=== PATIENT | female | born 1965 | race Caucasian/White ===

== ENCOUNTER 2016-02-21 17:12 | Emergency (ER) | payer SELFPAY ==
[~2016-02-21] VITALS: Ht 157.5 cm; Wt 49.9 kg
[~2016-02-21 17:12] MED LIST: CITALOPRAM PO; DULO30CA PO; GABA250S2 PO; HYDR2TAB27 PO; METH-171 PO; METHADONE PO; MORPHINE PO; [UNRECOGNIZED DRUG - CODE]; [UNRECOGNIZED DRUG - CODE]
[2016-02-21 17:43] LABS: Basophils # (auto) 0 uL; Basophils % (auto) 0.5 % (0.0-2.0); Eosinophils # (auto) 0 uL; Eosinophils % (auto) 1.1 % (0.0-7.0); Hematocrit 43.4 % (36.0-46.0); Hemoglobin 14.2 g/dL (12.2-16.2); Lymphocytes # (auto) 1.4 uL; Lymphocytes % (auto) 32.1 % (10.0-50.0); Mean Corpuscular Hemoglobin 29.5 pg (28.0-32.0); Mean Corpuscular Hgb Conc. 32.7 g/dL (32.0-36.0); Mean Corpuscular Volume 90.3 fL (80.0-100.0); Mean Platelet Volume 8.1 fL (7.4-10.4); Monocytes # (auto) 0.3 uL; Monocytes % (auto) 7.5 % (0.0-12.0); Neutrophils # (auto) 2.6 uL; Neutrophils % (auto) 58.8 % (37.0-80.0); Platelet Count (auto) 286 10^3/uL (140-450); Red Cell Distribution Width 13.7 % (11.6-16.0); White Blood Cell 4.4 10^3/uL (4.4-10.8)
[2016-02-21 18:12] LABS: Albumin 3.6 g/dL (3.4-5.0); BUN/Creatinine Ratio 28.4; Bilirubin, Total 0.2 mg/dL (0.2-1.0); Calcium 8.5 mg/dL (8.5-10.1); Magnesium 2.4 mg/dL (1.6-2.6); Potassium 4.4 mmol/L (3.5-5.1); Total Protein 7.1 g/dL (6.4-8.2)
[2016-02-21] MEDS ORDERED: ONDANSETRON HCL 4 MG/2 ML VIAL IV ONE (20:00)
[2016-02-21] MEDS ORDERED: SODIUM CHLORIDE 0.9% 1,000 ML IV ONE (20:00)
[2016-02-21] MEDS ORDERED: cefTRIAXone 1GM/50ML D5W 50 ML IV ONE (20:00)
[2016-02-21] MEDS ORDERED: HYDROmorphone HCL 2 MG/ML VL IV ONE (20:00)
[2016-02-21] MEDS ORDERED: methylPREDNISolone SOD SUCC 125 MG/2 ML VL IV ONE (20:15)
[2016-02-21] MEDS ORDERED: ALBUTEROL SULF 2.5 MG/0.5ML(0.5%) NEB SOLN NEB ONE (20:15)
[2016-02-21] MEDS ORDERED: IPRATROPIUM BROM 0.5 MG/2.5ML INH SOL NEB ONE (20:15)
[2016-02-21] MEDS ORDERED: SOD CHL 0.45% 1,000 ML IV ONE (20:45)
[2016-02-21] MEDS ORDERED: HYDROmorphone HCL 2 MG TAB PO ONE (21:30)
[2016-02-21 23:24] VITALS: BP 122/68
== END 2016-02-21 23:19 | disposition home or self-care (01) ==
LOC: EDBD 17:12 → ER 17:18
DX: J18.9 Pneumonia, unspecified organism (principal); R00.1 Bradycardia, unspecified; F17.210 Nicotine dependence, cigarettes, uncomplicated; M41.9 Scoliosis, unspecified; E86.0 Dehydration; R07.9 Chest pain, unspecified; Z98.890 Other specified postprocedural states
CPT/HCPCS: 36415; 36600; 71010; 80053; 82805; 83735; 84484; 85025; 87040; 87400; 93005; 94640; 96365; 96375; 96376; 99285; J0696; J1170; J2405; J2930

== ENCOUNTER 2017-03-16 07:43 | Emergency (ER) | payer OTHER ==
[~2017-03-16] VITALS: Ht 30.5 cm; Wt 54.4 kg
[~2017-03-16 07:43] MED LIST changes: -HYDR2TAB27 PO; +HYDR2TAB58 PO; -METH-171 PO; +METH-532 PO
[2017-03-16 09:04] LABS: Basophils # (auto) 0 uL; Basophils % (auto) 0.4 % (0.0-2.0); Eosinophils # (auto) 0 uL; Eosinophils % (auto) 1.2 % (0.0-7.0); Hematocrit 40.9 % (36.0-46.0); Hemoglobin 13.8 g/dL (12.2-16.2); Lymphocytes # (auto) 0.9 uL; Lymphocytes % (auto) 26.7 % (10.0-50.0); Mean Corpuscular Hemoglobin 30.7 pg (28.0-32.0); Mean Corpuscular Hgb Conc. 33.7 g/dL (32.0-36.0); Mean Corpuscular Volume 91.1 fL (80.0-100.0); Monocytes # (auto) 0.4 uL; Monocytes % (auto) 11.6 % (0.0-12.0); Neutrophils # (auto) 2.1 uL; Neutrophils % (auto) 60.1 % (37.0-80.0); Nucleated Red Blood Cells % 0.1 %; Platelet Count (auto) 181 10^3/uL (140-450); Red Cell Distribution Width 14.8 % (11.8-14.3); White Blood Cell 3.5 10^3/uL (4.4-10.8)
[2017-03-16] MEDS ORDERED: SODIUM CHLORIDE 0.9% 1,000 ML IV ONE ×2 (09:21→09:48)
[2017-03-16 09:26] LABS: Albumin 3.8 g/dL (3.4-5.0); Bilirubin, Total 0.4 mg/dL (0.2-1.0); Calcium 8.7 mg/dL (8.5-10.1); Total Protein 7.2 g/dL (6.4-8.2)
[2017-03-16] MEDS ORDERED: KETOROLAC TROMETH 30 MG/ML 1ML VIAL IV ONE ×2 (09:30→10:00)
[2017-03-16] MEDS ORDERED: PROMETHAZINE HCL 25 MG/ML 1ML IV ONE ×2 (09:30→10:00)
[2017-03-16] MEDS ORDERED: MORPHINE SULFATE 10 MG/ML INJ 1ML SDV IV ONE (10:00)
[2017-03-16] MEDS ORDERED: MORPHINE SULF INJ 2 MG/ML SYRINGE 1ML ONE ×2 (10:43→10:56)
[2017-03-16] MEDS ORDERED: MORPHINE SULF INJ 2 MG/ML SYRINGE 1ML IV ONE (11:00)
[2017-03-16 12:08] LABS: Urine Bacteria FEW /hpf (None Seen); Urine Blood TRACE /uL (Negative); Urine Mucus FEW (None Seen); Urine Specific Gravity 1.006 (1.001-1.035); Urine WBC <1 /hpf (0 - 5)
[2017-03-16 13:09] VITALS: BP 92/50
[2017-03-16] MEDS ORDERED: PROMETHAZINE HCL 25 MG/ML 1ML IM ONE (14:15)
[2017-03-16] MEDS ORDERED: fentaNYL 50MCG/HR 50 MCG/HR PAT TD SCH (14:15)
[2017-03-16] MEDS ORDERED: MEPERIDINE HCL (50 MG/ML) 1 ML VIAL IM ONE (14:15)
== END 2017-03-16 16:12 | disposition home or self-care (01) ==
LOC: EDBD 07:43 → ER 07:43
DX: M54.16 Radiculopathy, lumbar region (principal); G89.29 Other chronic pain; M41.9 Scoliosis, unspecified; F11.23 Opioid dependence with withdrawal; F17.210 Nicotine dependence, cigarettes, uncomplicated; F15.10 Other stimulant abuse, uncomplicated; F12.10 Cannabis abuse, uncomplicated; Z88.1 Allergy status to other antibiotic agents; Z79.899 Other long term (current) drug therapy
CPT/HCPCS: 36415; 80053; 81001; 83735; 85025; 93005; 96361; 96372; 96374; 96375; 99285; J1885; J2175; J2270; J2550; J7030

== ENCOUNTER 2018-10-12 06:47 | Emergency (ER) | payer OTHER ==
[~2018-10-12] VITALS: Ht 165.1 cm; Wt 56.2 kg
[2018-10-12] MEDS ORDERED: HYDROmorphone HCL 2 MG/ML VL IV ONE (07:15)
[2018-10-12] MEDS ORDERED: PROMETHAZINE HCL 25 MG/ML 1ML IV ONE (07:15)
[2018-10-12 07:33] LABS: Basophils # (auto) 0 uL; Basophils % (auto) 0.3 % (0.0-2.0); Eosinophils # (auto) 0.1 uL; Eosinophils % (auto) 1.1 % (0.0-7.0); Hematocrit 41.8 % (36.0-46.0); Hemoglobin 14.3 g/dL (12.2-16.2); Lymphocytes # (auto) 1.6 uL; Lymphocytes % (auto) 23.4 % (10.0-50.0); Mean Corpuscular Hemoglobin 30.7 pg (28.0-32.0); Mean Corpuscular Hgb Conc. 34.1 g/dL (32.0-36.0); Monocytes # (auto) 0.5 uL; Monocytes % (auto) 7.7 % (0.0-12.0); Neutrophils # (auto) 4.7 uL; Neutrophils % (auto) 67.5 % (37.0-80.0); Platelet Count (auto) 196 10^3/uL (140-450); Red Blood Cells 4.65 10^6/uL (4.0-5.20); Red Cell Distribution Width 13.7 % (11.8-14.3)
[2018-10-12] MEDS ORDERED: ASPirin 81 mg TAB PO ONE (07:45)
[2018-10-12 07:47] LABS: Albumin 4.3 g/dL (3.4-5.0); Anion Gap 9 (5-15); Calcium 9.2 mg/dL (8.5-10.1); Carbon Dioxide 24 mmol/L (21-32); Chloride 108 mmol/L (98-107); Glucose 82 mg/dL (74-106); Magnesium 2.3 mg/dL (1.6-2.6); Potassium 3.7 mmol/L (3.5-5.1); Sodium 141 mmol/L (136-145)
[2018-10-12 07:54] LABS: Alanine Aminotransferase 17 U/L (13-56); Alkaline Phosphatase 95 U/L (45-117); Aspartate Aminotransferase 15 U/L (15-37); Bilirubin, Total 0.3 mg/dL (0.2-1.0); Blood Urea Nitrogen 24 mg/dL (7-18); GFR African American 85 mL/min; GFR Non-African American 70 mL/min; Total Protein 7.9 g/dL (6.4-8.2)
[2018-10-12] MEDS ORDERED: KETOROLAC TROMETH 30 MG/ML 1ML VIAL IV ONE (12:15)
[2018-10-12 12:47] VITALS: BP 160/100
== END 2018-10-12 13:00 | disposition home or self-care (01) ==
LOC: ER 06:47
DX: R07.89 Other chest pain (principal); F17.210 Nicotine dependence, cigarettes, uncomplicated; Z88.1 Allergy status to other antibiotic agents; Z79.899 Other long term (current) drug therapy
CPT/HCPCS: 36415; 71045; 80053; 83735; 83880; 84484; 85025; 93005; 96374; 96375; 99284; J1170; J1885; J2550; J7030

== ENCOUNTER 2018-10-28 14:51 | Emergency (ER) | payer OTHER ==
[~2018-10-28] VITALS: Ht 170.2 cm; Wt 59.0 kg
[2018-10-28 15:28] LABS: Basophils # (auto) 0 uL; Basophils % (auto) 0.5 % (0.0-2.0); Eosinophils # (auto) 0 uL; Eosinophils % (auto) 0.9 % (0.0-7.0); Hematocrit 45.3 % (36.0-46.0); Hemoglobin 15.1 g/dL (12.2-16.2); Lymphocytes # (auto) 1.2 uL; Lymphocytes % (auto) 20.6 % (10.0-50.0); Mean Corpuscular Hemoglobin 30.2 pg (28.0-32.0); Mean Corpuscular Hgb Conc. 33.3 g/dL (32.0-36.0); Mean Corpuscular Volume 90.8 fL (80.0-100.0); Monocytes # (auto) 0.4 uL; Monocytes % (auto) 7.7 % (0.0-12.0); Neutrophils # (auto) 3.9 uL; Neutrophils % (auto) 70.3 % (37.0-80.0); Nucleated Red Blood Cells % 0.1 %; Platelet Count (auto) 227 10^3/uL (140-450); Red Blood Cells 4.99 10^6/uL (4.0-5.20); Red Cell Distribution Width 14.5 % (11.8-14.3); White Blood Cell 5.6 10^3/uL (4.4-10.8)
[2018-10-28] MEDS ORDERED: ASPirin 81 mg TAB PO ONE (15:30)
[2018-10-28 15:42] LABS: Alanine Aminotransferase 22 U/L (13-56); Anion Gap 11 (5-15); Blood Urea Nitrogen 24 mg/dL (7-18); Carbon Dioxide 24 mmol/L (21-32); Chloride 108 mmol/L (98-107); Glucose 96 mg/dL (74-106); Magnesium 2.1 mg/dL (1.6-2.6); Potassium 4.3 mmol/L (3.5-5.1); Sodium 143 mmol/L (136-145)
[2018-10-28 15:47] LABS: Alkaline Phosphatase 93 U/L (45-117); Aspartate Aminotransferase 17 U/L (15-37); BUN/Creatinine Ratio 18.8; Bilirubin, Total 0.7 mg/dL (0.2-1.0); GFR African American 56 mL/min; GFR Non-African American 46 mL/min; Total Protein 7.3 g/dL (6.4-8.2)
[2018-10-28 16:00] LABS: INR 0.97 (0.9-1.15); Partial Thromboplastin Time 25.9 sec (23.64-32.05)
[2018-10-28 20:36] VITALS: BP 119/85
[2018-10-28] MEDS ORDERED: ALPRAZolam 0.25 MG TAB PO ONE (21:15)
== END 2018-10-28 21:29 | disposition home or self-care (01) ==
LOC: EDBD 14:51 → ER 14:57
DX: I47.1 Supraventricular tachycardia (principal); I12.9 Hypertensive chronic kidney disease with stage 1 through stage 4 chronic kidney disease, or unspecified chronic kidney disease; N18.3 Chronic kidney disease, stage 3 (moderate); F17.210 Nicotine dependence, cigarettes, uncomplicated
CPT/HCPCS: 36415; 71045; 80053; 83735; 83880; 84443; 84484; 85025; 85610; 85730; 93005; 94761

== ENCOUNTER 2021-08-10 13:34 | Emergency (ER) | payer OTHER ==
[~2021-08-10] VITALS: Ht 165.1 cm; Wt 50.8 kg
[2021-08-10] MEDS ORDERED: KETOROLAC TROMETH 60MG/2ML VIAL IM ONE (15:00)
[2021-08-10 15:18] VITALS: BP 150/99
== END 2021-08-10 14:53 | disposition home or self-care (01) ==
LOC: ER 13:34
DX: M79.10 Myalgia, unspecified site (principal); S86.911A Strain of unspecified muscle(s) and tendon(s) at lower leg level, right leg, initial encounter; S80.02XA Contusion of left knee, initial encounter; I10 Essential (primary) hypertension; I25.10 Atherosclerotic heart disease of native coronary artery without angina pectoris; F17.210 Nicotine dependence, cigarettes, uncomplicated; Z79.899 Other long term (current) drug therapy; Z88.1 Allergy status to other antibiotic agents; X58.XXXA Exposure to other specified factors, initial encounter; Y93.89 Activity, other specified; Y92.89 Other specified places as the place of occurrence of the external cause; Y99.8 Other external cause status
CPT/HCPCS: 73562; 73590; 96372; 99284; J1885

== ENCOUNTER 2021-12-17 08:49 | Emergency (ER) | payer OTHER ==
[~2021-12-17] VITALS: Ht 165.1 cm; Wt 51.0 kg
[2021-12-17] MEDS ORDERED: TRIA0.02 TOP (11:07)
[2021-12-17] MEDS ORDERED: ACYC-166 PO (11:07)
[2021-12-17 11:09] VITALS: BP 159/114
[2021-12-17] MEDS ORDERED: ACETAMINOPHEN 500 MG TAB PO ONE (11:15)
== END 2021-12-17 11:25 | disposition home or self-care (01) ==
LOC: ER 08:49
DX: B02.9 Zoster without complications (principal); I10 Essential (primary) hypertension; I25.10 Atherosclerotic heart disease of native coronary artery without angina pectoris; F17.210 Nicotine dependence, cigarettes, uncomplicated; Z79.899 Other long term (current) drug therapy; Z88.1 Allergy status to other antibiotic agents

== ENCOUNTER 2021-12-19 10:55 | Emergency (ER) | payer OTHER ==
[~2021-12-19] VITALS: Ht 165.1 cm; Wt 54.0 kg
[~2021-12-19 10:55] MED LIST changes: +ACYC-166 PO; +TRIA0.02 TOP
[2021-12-19] MEDS ORDERED: KETOROLAC TROMETH 60MG/2ML VIAL IM ONE (12:15)
[2021-12-19 12:19] VITALS: BP 122/96
[2021-12-19] MEDS ORDERED: TRAM-297 PO (12:30)
== END 2021-12-19 12:38 | disposition home or self-care (01) ==
LOC: ER 10:55
DX: B02.9 Zoster without complications (principal); G89.4 Chronic pain syndrome; I10 Essential (primary) hypertension; I25.10 Atherosclerotic heart disease of native coronary artery without angina pectoris; F17.210 Nicotine dependence, cigarettes, uncomplicated; Z79.899 Other long term (current) drug therapy; Z88.1 Allergy status to other antibiotic agents
CPT/HCPCS: 96372; 99283; J1885

== ENCOUNTER 2022-01-01 13:39 | Emergency (ER) | payer OTHER ==
[~2022-01-01] VITALS: Ht 165.1 cm; Wt 51.0 kg
[~2022-01-01 13:39] MED LIST changes: +TRAM-297 PO
[2022-01-01] MEDS ORDERED: TRIA0.02 TOP (15:34)
[2022-01-01 15:36] VITALS: BP 180/104
[2022-01-01] MEDS ORDERED: KETOROLAC TROMETH 60MG/2ML VIAL IM ONE (15:45)
== END 2022-01-01 15:53 | disposition home or self-care (01) ==
LOC: ER 13:39
DX: B02.29 Other postherpetic nervous system involvement (principal); I10 Essential (primary) hypertension; I25.10 Atherosclerotic heart disease of native coronary artery without angina pectoris; F17.210 Nicotine dependence, cigarettes, uncomplicated; Z79.899 Other long term (current) drug therapy; Z88.1 Allergy status to other antibiotic agents; Z88.5 Allergy status to narcotic agent
CPT/HCPCS: 96372; 99283; J1885

== ENCOUNTER 2022-05-15 13:23 | Emergency (ER) | payer OTHER ==
[~2022-05-15] VITALS: Ht 165.1 cm; Wt 56.6 kg
[2022-05-15 13:58] LABS: Basophils # (auto) 0 10 ^3/uL (0-0.2); Basophils % (auto) 0.8 % (0.0-2.0); Eosinophils # (auto) 0.1 10 ^3/uL (0-0.8); Eosinophils % (auto) 1.4 % (0.0-7.0); Hematocrit 46.3 % (36.0-46.0); Hemoglobin 15.7 g/dL (12.2-16.2); Lymphocytes # (auto) 0.8 10 ^3/uL (0.4-5.4); Lymphocytes % (auto) 17.2 % (10.0-50.0); Mean Corpuscular Volume 88.3 fL (80.0-100.0); Monocytes # (auto) 0.3 10 ^3/uL (0-1.3); Neutrophils # (auto) 3.5 10 ^3/uL (1.6-8.6); Neutrophils % (auto) 74.6 % (37.0-80.0); Nucleated Red Blood Cells % 0.7 %; Red Blood Cells 5.24 10^6/uL (4.0-5.20); Red Cell Distribution Width 13.3 % (11.8-14.3); White Blood Cell 4.7 10^3/uL (4.4-10.8)
[2022-05-15] MEDS ORDERED: MORPHINE SULFATE 4 MG/ML SYR/VIAL IV ONE (14:00)
[2022-05-15] MEDS ORDERED: PROCHLORPERAZINE EDISYLATE 5 MG/ML 2ML VIAL IV ONE (14:00)
[2022-05-15 14:27] LABS: INR 0.97 (0.9-1.15); Partial Thromboplastin Time 26.5 sec (24.6-33.4)
[2022-05-15 15:13] LABS: Albumin 3.9 g/dL (3.4-5.0); BUN/Creatinine Ratio 19.7 (10.0-20.0); Calcium 9.4 mg/dL (8.5-10.1); Magnesium 2.3 mg/dL (1.6-2.6); Potassium 5.1 mmol/L (3.5-5.1)
[2022-05-15 15:15] LABS: Bilirubin, Total 0.4 mg/dL (0.2-1.0); Total Protein 7.2 g/dL (6.4-8.2)
[2022-05-15] MEDS ORDERED: ALBUTEROL SULF 2.5 MG/0.5ML(0.5%) NEB SOLN NEB ONE (15:45)
[2022-05-15] MEDS ORDERED: IPRATROPIUM BROM 0.5 MG/2.5ML INH SOL NEB ONE (15:45)
[2022-05-15] MEDS ORDERED: SODIUM CHLORIDE 0.9% 1,000 ML IV ONE (16:00)
[2022-05-15] MEDS ORDERED: methylPREDNISolone SOD SUCC 125 MG/2 ML VL IV ONE (18:00)
[2022-05-15] MEDS ORDERED: ALBUAER3 IN (18:41)
[2022-05-15] MEDS ORDERED: MELO1TAB56 PO (18:41)
[2022-05-15] MEDS ORDERED: PRED20TA2 PO (18:41)
[2022-05-15 18:51] VITALS: BP 132/86
== END 2022-05-15 18:48 | disposition home or self-care (01) ==
LOC: ER 13:23
DX: J44.1 Chronic obstructive pulmonary disease with (acute) exacerbation (principal); M94.0 Chondrocostal junction syndrome [Tietze]; Z79.899 Other long term (current) drug therapy; Z88.1 Allergy status to other antibiotic agents; Z88.5 Allergy status to narcotic agent
CPT/HCPCS: 36415; 71045; 80053; 83735; 83880; 84484; 85025; 85610; 85730; 93005; 94640; 96361; 96374; 96375; 99285; J0780; J2270; J2930; J7030; J7644

== ENCOUNTER 2023-06-24 11:40 | Emergency (ER) | payer OTHER ==
[~2023-06-24] VITALS: Ht 165.1 cm; Wt 57.5 kg
[~2023-06-24 11:40] MED LIST changes: -ACYC-166 PO; +ACYC1TAB3 PO; +ALBUAER3 IN; -GABA250S2 PO; +GABA250S7 PO; +MELO15TA29 PO; +PRED20TA2 PO
[2023-06-24 13:06] VITALS: BP 150/104; PULSE 95; RESP 16; TEMP 97.5; O2SAT 99
[2023-06-24] MEDS ORDERED: AMOX500T86 PO (13:31)
== END 2023-06-24 13:33 | disposition home or self-care (01) ==
LOC: ER 11:40
DX: S51.832A Puncture wound without foreign body of left forearm, initial encounter (principal); I10 Essential (primary) hypertension; I25.10 Atherosclerotic heart disease of native coronary artery without angina pectoris; F41.9 Anxiety disorder, unspecified; F17.210 Nicotine dependence, cigarettes, uncomplicated; Z88.8 Allergy status to other drugs, medicaments and biological substances; Z79.899 Other long term (current) drug therapy; W54.0XXA Bitten by dog, initial encounter; Y93.89 Activity, other specified; Y92.89 Other specified places as the place of occurrence of the external cause; Y99.8 Other external cause status
CPT/HCPCS: 73090

== ENCOUNTER 2023-08-18 14:07 | Inpatient (IN) | payer OTHER ==
[~2023-08-18] VITALS: Ht 167.6 cm; Wt 54.1 kg
[~2023-08-18 14:07] MED LIST changes: +AMOX500T86 PO
[2023-08-18 14:56] LABS: Basophils # (auto) 0 10 ^3/uL (0-0.2); Basophils % (auto) 0.5 % (0.0-2.0); Eosinophils # (auto) 0.1 10 ^3/uL (0-0.8); Eosinophils % (auto) 1.6 % (0.0-7.0); Hematocrit 43.5 % (36.0-46.0); Hemoglobin 14.7 g/dL (12.2-16.2); Lymphocytes # (auto) 1.3 10 ^3/uL (0.4-5.4); Lymphocytes % (auto) 27.8 % (10.0-50.0); Mean Corpuscular Hemoglobin 30.5 pg (28.0-32.0); Mean Corpuscular Hgb Conc. 33.9 g/dL (32.0-36.0); Mean Corpuscular Volume 90.1 fL (80.0-100.0); Monocytes # (auto) 0.5 10 ^3/uL (0-1.3); Monocytes % (auto) 10.5 % (0.0-12.0); Neutrophils # (auto) 2.7 10 ^3/uL (1.6-8.6); Neutrophils % (auto) 59.6 % (37.0-80.0); Nucleated Red Blood Cells % 0.1 %; Red Blood Cells 4.83 10^6/uL (4.0-5.20); Red Cell Distribution Width 14.6 % (11.8-14.3); White Blood Cell 4.5 10^3/uL (4.4-10.8)
[2023-08-18 15:12] LABS: Alanine Aminotransferase 18 U/L (7-40); Albumin 4.2 g/dL (3.2-4.8); Alkaline Phosphatase 108 U/L (46-116); Anion Gap 4 (5-15); Aspartate Aminotransferase 12 U/L (13-40); BUN/Creatinine Ratio 18.8 (10.0-20.0); Bilirubin, Total 0.5 mg/dL (0.2-1.0); Blood Urea Nitrogen 18 mg/dL (9-23); Calcium 9.6 mg/dL (8.7-10.4); Carbon Dioxide 28 mmol/L (20-30); Chloride 108 mmol/L (98-107); Glucose 99 mg/dL (74-106); Lipase 34 U/L (12-53); Potassium 4.6 mmol/L (3.5-5.1); Sodium 140 mmol/L (136-145); Total Protein 6.5 g/dL (5.7-8.2)
[2023-08-18] MEDS: ALPRAZolam 0.5 MG TAB PO ONE (15:15)
[2023-08-18] MEDS: KETOROLAC TROMETH 30 MG/ML 1ML VIAL IV ONE (16:30)
[2023-08-18 17:12] LABS: Urine Bacteria None Seen /hpf (None Seen)
[2023-08-18 17:19] LABS: Urine Blood TRACE /uL (Negative); Urine Clarity Clear (Clear); Urine Color Light-Yellow (Yellow); Urine Mucus FEW (None Seen); Urine Protein, UAD Negative (Negative); Urine Specific Gravity 1.016 (1.001-1.035); Urine Urobilinogen Normal (Negative); Urine WBC 7 /hpf (0 - 5)
[2023-08-18 17:29] LABS: Amphetamine Screen, Urine Neg (NEGATIVE); Barbiturate Scree,Urine Neg (NEGATIVE); Benzodiazephine Screen, Urine Neg (NEGATIVE); Cocaine Screen, Urine Neg (NEGATIVE); Opiate Scree,Urine Neg (NEGATIVE)
[2023-08-18 17:30] LABS: Cannabinoid Screen, Urine Neg (NEGATIVE); Phencyclidine Screen, Urine Neg (NEGATIVE)
[2023-08-18] MEDS ORDERED: cloNIDine 0.2 mg/24hr 7DAY PATCH TD ONE (18:30)
[2023-08-18] MEDS: cloNIDine HCL 0.1 MG TAB PO ONE (18:30)
[2023-08-18] MEDS ORDERED: cefTRIAXone SOD 1,000 MG VL IM ONE (18:30)
[2023-08-18] MEDS: cefTRIAXone 1GM/50ML D5W 50 ML IV ONE (18:45)
[2023-08-18 18:53] VITALS: PULSE 85; RESP 18; O2SAT 98
[2023-08-18] MEDS: ACETAMINOPHEN 325 MG TAB PO ONE (19:43)
[2023-08-18] MEDS ORDERED: MELATONIN 5 MG TAB PO PRN (19:45)
[2023-08-18] MEDS ORDERED: ONDANSETRON HCL 4 MG/2 ML VIAL IV PRN (19:45)
[2023-08-18] MEDS ORDERED: NITROGLYCERIN 0.4 MG SL TAB SL PRN (19:45)
[2023-08-18] MEDS ORDERED: MORPHINE SULFATE INJ 2 MG/ml SYRG IV PRN (19:45)
[2023-08-18] MEDS ORDERED: hydrALAZINE HCL 20 MG/ML VL IV PRN (19:45)
[2023-08-18] MEDS: ASPirin 81 mg TAB PO SCH (21:26)
[2023-08-18 22:21] VITALS: BP 136/98; PULSE 71; RESP 20; TEMP 97.4; O2SAT 99
[2023-08-18 22:26] VITALS: BP 136/98; PULSE 75; RESP 20; TEMP 97.4; O2SAT 99
[2023-08-18] MEDS: ATORVASTATIN 20 MG TAB PO SCH (22:59)
[2023-08-18] MEDS ORDERED: LOSA-533 PO (23:41)
[2023-08-19 01:37] VITALS: BP 113/81; PULSE 60; RESP 17; TEMP 97.5; O2SAT 97
[2023-08-19] MEDS: HYDROcodone-ACET 5/325MG TAB PO PRN (06:02)
[2023-08-19 06:31] VITALS: BP 145/87; PULSE 78; RESP 17; TEMP 97.5; O2SAT 97
[2023-08-19 07:01] LABS: Triglycerides 84 mg/dL (< 150)
[2023-08-19 07:02] LABS: LDL Cholesterol 70 mg/dL (< 100)
[2023-08-19 07:03] LABS: Cholesterol 143 mg/dL (< 200); HDL Cholesterol 60 mg/dL (40-59)
[2023-08-19 08:00] VITALS: PULSE 59; PULSE 75; RESP 18; O2SAT 98
[2023-08-19 09:00] VITALS: BP 128/79; PULSE 75; RESP 18; TEMP 97.9; O2SAT 95
[2023-08-19] MEDS: PANTOPRAZOLE 40 MG/10 ML VIAL INJ IV SCH (09:14)
[2023-08-19] MEDS: ACETAMINOPHEN 325 MG TAB PO PRN (09:14)
[2023-08-19] MEDS: cefTRIAXone 1GM/50ML D5W 50 ML IV SCH (09:15)
[2023-08-19] MEDS: ENOXAPARIN SOD 40 MG/0.4 ML SYRINGE SC SCH (09:39)
[2023-08-19 13:00] VITALS: BP 112/75; PULSE 64; RESP 16; TEMP 97.8; O2SAT 97
[2023-08-19] MEDS ORDERED: ACETAMINOPHEN 325 MG TAB PO PRN (14:30)
== END 2023-08-19 16:00 | disposition home or self-care (01) | DRG 206 ==
LOC: EDBD 14:07 → EDUNIT# 14:07 → ER 14:07 → TELE 19:43 → TELE-WESTW 19:46 → WEST WING 21:51 → TELE-WESTW 08-19 05:17 → OBSVTOIN 08-19 08:43
PROVIDERS: ADMIT Nurse Practitioner Family; ATTEND Internal Medicine
DX: M94.0 Chondrocostal junction syndrome [Tietze] (principal); N39.0 Urinary tract infection, site not specified; I10 Essential (primary) hypertension; I25.10 Atherosclerotic heart disease of native coronary artery without angina pectoris; F17.210 Nicotine dependence, cigarettes, uncomplicated; Z85.048 Personal history of other malignant neoplasm of rectum, rectosigmoid junction, and anus; Z80.0 Family history of malignant neoplasm of digestive organs; Z79.899 Other long term (current) drug therapy
CPT/HCPCS: 36415; 71045; 80053; 80061; 80307; 81001; 83690; 83880; 84484; 85025; 86803; 87086; 87340; 93005; 93306; 96365; 96375; G0378; J1885

== ENCOUNTER 2023-09-10 12:42 | Inpatient (IN) | payer OTHER ==
[~2023-09-10] VITALS: Ht 165.1 cm; Wt 57.5 kg
[~2023-09-10 12:42] MED LIST changes: -ACYC1TAB3 PO; -CITALOPRAM PO; -DULO30CA PO; -GABA250S7 PO; -HYDR2TAB58 PO; +LOSA-533 PO; -METH-532 PO; -METHADONE PO; -MORPHINE PO; -PRED20TA2 PO; -TRIA0.02 TOP; -[UNRECOGNIZED DRUG - CODE]; -[UNRECOGNIZED DRUG - CODE]
[2023-09-10 13:50] VITALS: PULSE 66; RESP 20; O2SAT 94
[2023-09-10 14:52] LABS: Basophils # (auto) 0 10 ^3/uL (0-0.2); Basophils % (auto) 0.3 % (0.0-2.0); Eosinophils # (auto) 0 10 ^3/uL (0-0.8); Eosinophils % (auto) 0.7 % (0.0-7.0); Hematocrit 39.6 % (36.0-46.0); Hemoglobin 13.2 g/dL (12.2-16.2); Lymphocytes % (auto) 21.6 % (10.0-50.0); Mean Corpuscular Hemoglobin 30.4 pg (28.0-32.0); Mean Corpuscular Hgb Conc. 33.4 g/dL (32.0-36.0); Mean Corpuscular Volume 91.1 fL (80.0-100.0); Monocytes # (auto) 0.3 10 ^3/uL (0-1.3); Monocytes % (auto) 7.3 % (0.0-12.0); Neutrophils # (auto) 3.3 10 ^3/uL (1.6-8.6); Neutrophils % (auto) 70.1 % (37.0-80.0); Nucleated Red Blood Cells % 0.1 %; Red Blood Cells 4.35 10^6/uL (4.0-5.20); Red Cell Distribution Width 13.7 % (11.8-14.3); White Blood Cell 4.7 10^3/uL (4.4-10.8)
[2023-09-10 15:00] LABS: Alanine Aminotransferase 16 U/L (7-40); Albumin 3.8 g/dL (3.2-4.8); Alkaline Phosphatase 85 U/L (46-116); Anion Gap 8 (5-15); Aspartate Aminotransferase 15 U/L (13-40); BUN/Creatinine Ratio 31.8 (10.0-20.0); Bilirubin, Total 0.3 mg/dL (0.2-1.0); Blood Urea Nitrogen 27 mg/dL (9-23); Calcium 8.2 mg/dL (8.7-10.4); Carbon Dioxide 21 mmol/L (20-30); Chloride 112 mmol/L (98-107); Glucose 95 mg/dL (74-106); Magnesium 1.5 mg/dL (1.6-2.6); Potassium 4.1 mmol/L (3.5-5.1); Sodium 141 mmol/L (136-145); Total Protein 5.7 g/dL (5.7-8.2)
[2023-09-10] MEDS: ACETAMINOPHEN 325 MG TAB PO ONE (15:03)
[2023-09-10] MEDS: ASPirin 81 mg TAB PO ONE (15:03)
[2023-09-10] MEDS: SODIUM CHLORIDE 0.9% 1,000 ML IV ONE (15:30)
[2023-09-10] MEDS: MAGNESIUM SULFATE 1GM/100ML 100 ML IV SCH ×2 (15:45→21:03)
[2023-09-10] MEDS: KETOROLAC TROMETH 30 MG/ML 1ML VIAL IV ONE (16:31)
[2023-09-10] MEDS: ONDANSETRON HCL 4 MG/2 ML VIAL IV ONE (16:31)
[2023-09-10] MEDS ORDERED: ATEN-60 PO (16:47)
[2023-09-10] MEDS ORDERED: OLME40TA76 PO (16:47)
[2023-09-10] MEDS: METOCLOPRAMIDE HCL 5MG/ml INJ 2ml VIAL IV ONE (20:03)
[2023-09-10] MEDS: hydrALAZINE HCL 20 MG/ML VL IV ONE (20:03)
[2023-09-10] MEDS: DexAMETHasone SOD PHOS 10MG/1ML VIAL INJ IV ONE (20:22)
[2023-09-10] MEDS: SUMAtriptan SUCCINATE 6 MG/0.5 ML VL SC ONE (20:22)
[2023-09-10] MEDS ORDERED: NITROGLYCERIN 0.4 MG SL TAB SL PRN (22:15)
[2023-09-10] MEDS ORDERED: hydrALAZINE HCL 20 MG/ML VL IV PRN (22:15)
[2023-09-10] MEDS ORDERED: ONDANSETRON HCL 4 MG/2 ML VIAL IV PRN (22:15)
[2023-09-10] MEDS ORDERED: ACETAMINOPHEN 325 MG TAB PO PRN (22:15)
[2023-09-10] MEDS ORDERED: cloNIDine HCL 0.1 MG TAB PO PRN (22:15)
[2023-09-10] MEDS ORDERED: MORPHINE SULFATE INJ 2 MG/ml SYRG IV PRN (22:15)
[2023-09-10] MEDS ORDERED: DOCUSATE SOD 100 MG CAP PO PRN (22:15)
[2023-09-10 23:06] LABS: Urine Bacteria None Seen /hpf (None Seen)
[2023-09-10 23:13] LABS: Urine Blood Negative /uL (Negative); Urine Clarity Clear (Clear); Urine Color Light-Yellow (Yellow); Urine Protein, UAD Negative (Negative); Urine Specific Gravity 1.019 (1.001-1.035); Urine Urobilinogen Normal (Negative); Urine WBC 1 /hpf (0 - 5)
[2023-09-10] MEDS: SODIUM CHLORIDE 0.9% 1,000 ML IV SCH (23:23)
[2023-09-10 23:45] VITALS: PULSE 84; RESP 18; O2SAT 96
[2023-09-10 23:48] VITALS: BP 140/87; RESP 18; TEMP 97.8
[2023-09-11] VITALS (8 sets, daily range): BP systolic 116–142; BP diastolic 68–96; PULSE 69–86; RESP 14–20; TEMP 97.2–98.7; O2SAT 95–98
[2023-09-11] MEDS: traMADol HCL 50 MG TAB PO PRN (03:30)
[2023-09-11 07:12] LABS: Basophils # (auto) 0 10 ^3/uL (0-0.2); Basophils % (auto) 0.1 % (0.0-2.0); Eosinophils # (auto) 0 10 ^3/uL (0-0.8); Hematocrit 42.7 % (36.0-46.0); Hemoglobin 14.6 g/dL (12.2-16.2); Lymphocytes # (auto) 0.4 10 ^3/uL (0.4-5.4); Lymphocytes % (auto) 8.2 % (10.0-50.0); Mean Corpuscular Hemoglobin 30.6 pg (28.0-32.0); Mean Corpuscular Hgb Conc. 34.3 g/dL (32.0-36.0); Monocytes # (auto) 0 10 ^3/uL (0-1.3); Monocytes % (auto) 1.1 % (0.0-12.0); Neutrophils # (auto) 4.1 10 ^3/uL (1.6-8.6); Neutrophils % (auto) 90.6 % (37.0-80.0); Nucleated Red Blood Cells % 0.1 %; Red Blood Cells 4.79 10^6/uL (4.0-5.20); Red Cell Distribution Width 14.2 % (11.8-14.3); White Blood Cell 4.5 10^3/uL (4.4-10.8)
[2023-09-11 07:28] LABS: Anion Gap 8 (5-15); Carbon Dioxide 22 mmol/L (20-30); Chloride 109 mmol/L (98-107); Potassium 4.2 mmol/L (3.5-5.1); Sodium 139 mmol/L (136-145)
[2023-09-11 07:29] LABS: Calcium 9.6 mg/dL (8.7-10.4)
[2023-09-11 07:34] LABS: BUN/Creatinine Ratio 27.8 (10.0-20.0); Blood Urea Nitrogen 27 mg/dL (9-23); Glucose 135 mg/dL (74-106)
[2023-09-11] MEDS: ASPirin 81 mg TAB PO SCH (08:23)
[2023-09-11] MEDS: ENOXAPARIN SOD 40 MG/0.4 ML SYRINGE SC SCH (08:24)
[2023-09-11] MEDS ORDERED: METOPROLOL TARTRATE 25 MG TAB PO ONE (10:00)
[2023-09-11] MEDS ORDERED: METOPROLOL TARTRATE 25 MG TAB PO SCH (10:00)
[2023-09-11 12:17] LABS: Amphetamine Screen, Urine Neg (NEGATIVE); Barbiturate Scree,Urine Neg (NEGATIVE); Benzodiazephine Screen, Urine Neg (NEGATIVE); Cannabinoid Screen, Urine Neg (NEGATIVE); Cocaine Screen, Urine Neg (NEGATIVE); Opiate Scree,Urine Neg (NEGATIVE); Phencyclidine Screen, Urine Neg (NEGATIVE)
[2023-09-11] MEDS: KETOROLAC TROMETH 30 MG/ML 1ML VIAL IV PRN (12:38)
[2023-09-11 16:03] LABS: Amphetamine Screen, Urine Neg (NEGATIVE); Barbiturate Scree,Urine Neg (NEGATIVE); Benzodiazephine Screen, Urine Neg (NEGATIVE); Cannabinoid Screen, Urine Neg (NEGATIVE); Cocaine Screen, Urine Neg (NEGATIVE); Opiate Scree,Urine Neg (NEGATIVE); Phencyclidine Screen, Urine Neg (NEGATIVE)
[2023-09-12] VITALS (7 sets, daily range): BP systolic 131–148; BP diastolic 86–99; PULSE 57–80; RESP 16–19; TEMP 97.3–98.3; O2SAT 97–98
[2023-09-12] MEDS: MELATONIN 5 MG TAB PO ONE (00:03)
[2023-09-12 05:54] LABS: Basophils # (auto) 0 10 ^3/uL (0-0.2); Basophils % (auto) 0.3 % (0.0-2.0); Eosinophils # (auto) 0.1 10 ^3/uL (0-0.8); Eosinophils % (auto) 1.3 % (0.0-7.0); Hematocrit 38.4 % (36.0-46.0); Lymphocytes # (auto) 1.2 10 ^3/uL (0.4-5.4); Lymphocytes % (auto) 28.7 % (10.0-50.0); Mean Corpuscular Hemoglobin 30.3 pg (28.0-32.0); Mean Corpuscular Hgb Conc. 33.7 g/dL (32.0-36.0); Mean Corpuscular Volume 89.9 fL (80.0-100.0); Monocytes # (auto) 0.5 10 ^3/uL (0-1.3); Monocytes % (auto) 11.5 % (0.0-12.0); Neutrophils # (auto) 2.4 10 ^3/uL (1.6-8.6); Neutrophils % (auto) 58.2 % (37.0-80.0); Red Blood Cells 4.27 10^6/uL (4.0-5.20); Red Cell Distribution Width 14.5 % (11.8-14.3); White Blood Cell 4.1 10^3/uL (4.4-10.8)
[2023-09-12 06:06] LABS: Anion Gap 7 (5-15); Carbon Dioxide 25 mmol/L (20-30); Chloride 108 mmol/L (98-107); Potassium 4.4 mmol/L (3.5-5.1); Sodium 140 mmol/L (136-145)
[2023-09-12 06:07] LABS: Calcium 9.2 mg/dL (8.7-10.4)
[2023-09-12 06:12] LABS: BUN/Creatinine Ratio 24.5 (10.0-20.0); Blood Urea Nitrogen 26 mg/dL (9-23); Glucose 98 mg/dL (74-106)
[2023-09-12 08:55] LABS: Hepatitis B Surface Antigen Negative (Negative)
[2023-09-12 09:15] LABS: Hepatitis C Antibody Negative (Negative)
[2023-09-12] MEDS ORDERED: ATEN-60 PO (15:29)
== END 2023-09-12 16:55 | disposition home or self-care (01) | DRG 310 ==
LOC: EDBD 12:42 → EDUNIT# 12:42 → ER 12:42 → TELE 22:24 → TELE-CENTR 23:45 → OBSVTOIN 09-12 11:54
PROVIDERS: ADMIT Nurse Practitioner Family; ATTEND Nurse Practitioner Family
DX: I47.19 Other supraventricular tachycardia (principal); F17.210 Nicotine dependence, cigarettes, uncomplicated; I25.10 Atherosclerotic heart disease of native coronary artery without angina pectoris; F41.9 Anxiety disorder, unspecified; E83.42 Hypomagnesemia; Z88.1 Allergy status to other antibiotic agents; Z88.5 Allergy status to narcotic agent; Z79.899 Other long term (current) drug therapy; I16.0 Hypertensive urgency
CPT/HCPCS: 36415; 70450; 71046; 80048; 80053; 80307; 81001; 83735; 84443; 84484; 85025; 85379; 86803; 87340; 93005; 96361; 96365; 96366; 96372; 96375; G0378; J1100; J1885; J2405

== ENCOUNTER 2023-10-07 20:23 | Inpatient (IN) | payer OTHER ==
[~2023-10-07] VITALS: Ht 170.2 cm; Wt 58.0 kg
[~2023-10-07 20:23] MED LIST changes: -AMOX500T86 PO; +ATEN-60 PO; -MELO15TA29 PO
[2023-10-07 20:35] VITALS: PULSE 72; RESP 17; O2SAT 96
[2023-10-07 21:00] LABS: Basophils # (auto) 0 10 ^3/uL (0-0.2); Basophils % (auto) 0.1 % (0.0-2.0); Eosinophils # (auto) 0.1 10 ^3/uL (0-0.8); Eosinophils % (auto) 1.5 % (0.0-7.0); Hematocrit 39.1 % (36.0-46.0); Hemoglobin 13.3 g/dL (12.2-16.2); Lymphocytes # (auto) 1.3 10 ^3/uL (0.4-5.4); Lymphocytes % (auto) 27.4 % (10.0-50.0); Mean Corpuscular Hemoglobin 30.7 pg (28.0-32.0); Mean Corpuscular Volume 90.3 fL (80.0-100.0); Monocytes # (auto) 0.5 10 ^3/uL (0-1.3); Monocytes % (auto) 10.8 % (0.0-12.0); Neutrophils # (auto) 2.8 10 ^3/uL (1.6-8.6); Neutrophils % (auto) 60.2 % (37.0-80.0); Platelet Count (auto) 183 10^3/uL (140-450); Red Blood Cells 4.33 10^6/uL (4.0-5.20); Red Cell Distribution Width 14.1 % (11.8-14.3); White Blood Cell 4.7 10^3/uL (4.4-10.8)
[2023-10-07 21:23] LABS: Alanine Aminotransferase 11 U/L (7-40); Albumin 4.2 g/dL (3.2-4.8); Alkaline Phosphatase 97 U/L (46-116); Anion Gap 5 (5-15); Aspartate Aminotransferase 10 U/L (13-40); BUN/Creatinine Ratio 19.8 (10.0-20.0); Bilirubin, Total 0.3 mg/dL (0.2-1.0); Blood Urea Nitrogen 19 mg/dL (9-23); Calcium 9.7 mg/dL (8.7-10.4); Carbon Dioxide 26 mmol/L (20-30); Chloride 111 mmol/L (98-107); Glucose 94 mg/dL (74-106); Magnesium 1.9 mg/dL (1.6-2.6); Potassium 3.8 mmol/L (3.5-5.1); Sodium 142 mmol/L (136-145); Total Protein 6.7 g/dL (5.7-8.2)
[2023-10-07 21:35] LABS: INR 0.98 (0.9-1.15); Partial Thromboplastin Time 25.8 SEC (24.5-34.5); Prothrombin Time 10.4 sec (9.3-11.8)
[2023-10-07] MEDS: HYDROcodone-ACET 5/325MG TAB PO ONE (21:45)
[2023-10-07] MEDS: NITROGLYCERIN 2% OINT 1GM PKG TD ONE (23:13)
[2023-10-07] MEDS: ONDANSETRON HCL 4 MG/2 ML VIAL IV ONE (23:13)
[2023-10-07] MEDS: MORPHINE SULFATE INJ 2 MG/ml SYRG IV ONE (23:14)
[2023-10-08] VITALS (9 sets, daily range): BP systolic 119–158; BP diastolic 63–106; PULSE 52–65; RESP 16–20; TEMP 97.7–98.5; O2SAT 95–100
[2023-10-08] MEDS ORDERED: ALBUTEROL SULF HFA 90MCG INH 200DOSE IN PRN (00:15)
[2023-10-08] MEDS ORDERED: NITROGLYCERIN 0.4 MG SL TAB SL PRN (00:15)
[2023-10-08] MEDS: ASPirin 81 mg TAB PO SCH (00:15)
[2023-10-08] MEDS ORDERED: ALBUTEROL SULF 2.5 MG/0.5ML(0.5%) NEB SOLN NEB PRN (00:30)
[2023-10-08] MEDS: LOSARTAN POTASSIUM 25 MG TAB PO SCH (03:13)
[2023-10-08] MEDS: MORPHINE SULFATE INJ 2 MG/ml SYRG IV PRN (03:13)
[2023-10-08] MEDS: HYDROcodone-ACET 5/325MG TAB PO PRN (04:47)
[2023-10-08] MEDS ORDERED: hydrALAZINE HCL 10 MG TAB PO PRN (06:15)
[2023-10-08] MEDS ORDERED: ATENOLOL 25 MG TAB PO SCH (08:00)
[2023-10-08] MEDS: FAMOTIDINE 20 MG TAB PO SCH (09:38)
[2023-10-08] MEDS: ACETAMINOPHEN 325 MG TAB PO PRN (09:53)
[2023-10-08] MEDS ORDERED: OLME40TA78 PO (10:29)
[2023-10-08] MEDS ORDERED: ASPITAB37 PO (10:32)
[2023-10-08] MEDS: LORazepam 2MG/ML-1ML VIAL IV ONE (16:19)
[2023-10-08] MEDS: KETOROLAC TROMETH 30 MG/ML 1ML VIAL IV ONE (16:20)
[2023-10-08] MEDS: ATORVASTATIN 20 MG TAB PO SCH (21:07)
[2023-10-09] VITALS (9 sets, daily range): BP systolic 98–148; BP diastolic 64–90; PULSE 49–92; RESP 16–20; TEMP 97.9–98.9; O2SAT 95–99
[2023-10-09] MEDS: OLMESARTAN 20 MG PO SCH (08:37)
[2023-10-09] MEDS: ONDANSETRON HCL 4 MG/2 ML VIAL IV PRN (09:58)
[2023-10-09] MEDS: LORazepam 2MG/ML-1ML VIAL IV PRN (10:04)
[2023-10-09] MEDS: KETOROLAC TROMETH 30 MG/ML 1ML VIAL IV PRN (10:37)
[2023-10-09] MEDS ORDERED: ZOFR4T PO (13:15)
[2023-10-09] MEDS ORDERED: PANT40T PO (13:15)
[2023-10-09] MEDS ORDERED: IOHEXOL 300 MG/ML 100ML BOTTLE IJ ONE (14:05)
[2023-10-09 14:18] LABS: Basophils # (auto) 0 10 ^3/uL (0-0.2); Basophils % (auto) 0.2 % (0.0-2.0); Eosinophils # (auto) 0 10 ^3/uL (0-0.8); Eosinophils % (auto) 0.2 % (0.0-7.0); Hemoglobin 15.7 g/dL (12.2-16.2); Lymphocytes # (auto) 0.4 10 ^3/uL (0.4-5.4); Lymphocytes % (auto) 7.3 % (10.0-50.0); Mean Corpuscular Hemoglobin 30.2 pg (28.0-32.0); Mean Corpuscular Hgb Conc. 33.4 g/dL (32.0-36.0); Mean Corpuscular Volume 90.4 fL (80.0-100.0); Monocytes # (auto) 0.1 10 ^3/uL (0-1.3); Monocytes % (auto) 2.6 % (0.0-12.0); Neutrophils % (auto) 89.7 % (37.0-80.0); Nucleated Red Blood Cells % 0.1 %; Platelet Count (auto) 176 10^3/uL (140-450); Red Cell Distribution Width 13.6 % (11.8-14.3); White Blood Cell 5.5 10^3/uL (4.4-10.8)
[2023-10-09 14:39] LABS: Alanine Aminotransferase 13 U/L (7-40); Alkaline Phosphatase 106 U/L (46-116); Anion Gap 4 (5-15); Aspartate Aminotransferase 15 U/L (13-40); BUN/Creatinine Ratio 18.9 (10.0-20.0); Bilirubin, Total 0.7 mg/dL (0.2-1.0); Blood Urea Nitrogen 20 mg/dL (9-23); Calcium 9.9 mg/dL (8.7-10.4); Carbon Dioxide 27 mmol/L (20-30); Chloride 107 mmol/L (98-107); Glucose 131 mg/dL (74-106); Potassium 4.1 mmol/L (3.5-5.1); Sodium 138 mmol/L (136-145); Total Protein 7.9 g/dL (5.7-8.2)
[2023-10-09] MEDS ORDERED: NITROGLYCERIN 0.4 MG SL TAB SL PRN (23:15)
[2023-10-10 01:00] VITALS: BP 114/73; PULSE 87; RESP 19; TEMP 98; O2SAT 97
[2023-10-10 05:00] VITALS: BP 114/68; PULSE 71; RESP 18; TEMP 97.9; O2SAT 97
[2023-10-10 08:00] VITALS: PULSE 79; PULSE 80; RESP 16; O2SAT 97
[2023-10-10 09:00] VITALS: BP 113/86; PULSE 79; RESP 16; TEMP 98; O2SAT 96
[2023-10-10 12:45] VITALS: BP 118/82; PULSE 71; RESP 20; TEMP 97.4; O2SAT 97
[2023-10-10] MEDS: OXYCODONE W/ ACETAMINOPHEN 5/325MG TABLET PO PRN (13:49)
[2023-10-10] MEDS: VERAPAMIL HCL 40 MG TAB PO ONE (15:35)
[2023-10-10] MEDS ORDERED: VERA40TA PO ×2 (16:39→17:42)
[2023-10-10 16:45] VITALS: BP 101/63; PULSE 71; RESP 18; TEMP 97.6; O2SAT 97
[2023-10-10] MEDS: SODIUM CHLORIDE 0.9% 250 ML IV ONE (17:08)
[2023-10-10] MEDS ORDERED: ALPRAZolam 0.5 MG TAB PO SCH (22:00)
== END 2023-10-10 18:10 | disposition home or self-care (01) | DRG 305 ==
LOC: ER 20:23 → EDBD 20:23 → TELE 10-08 00:06 → TELE-CENTR 10-08 04:24 → OBSVTOIN 10-09 23:49 → CENTRAL 10-10 13:26
PROVIDERS: ADMIT Nurse Practitioner Family; ATTEND Hospitalist
DX: I16.0 Hypertensive urgency (principal); F41.9 Anxiety disorder, unspecified; F17.210 Nicotine dependence, cigarettes, uncomplicated; I25.10 Atherosclerotic heart disease of native coronary artery without angina pectoris; G43.909 Migraine, unspecified, not intractable, without status migrainosus; G44.40 Drug-induced headache, not elsewhere classified, not intractable; Z80.0 Family history of malignant neoplasm of digestive organs; Z80.1 Family history of malignant neoplasm of trachea, bronchus and lung
CPT/HCPCS: 36415; 71045; 74177; 80053; 83735; 83880; 84439; 84443; 84484; 85025; 85048; 85610; 85730; 87081; 93005; 96374; 96375; G0378; J1885; J2405

== ENCOUNTER 2024-04-14 07:07 | Emergency (ER) | payer OTHER ==
[~2024-04-14] VITALS: Ht 165.1 cm; Wt 68.1 kg
[~2024-04-14 07:07] MED LIST changes: -ALBUAER3 IN; -ATEN-60 PO; -LOSA-533 PO; +OLME40TA78 PO; +PANT40T PO; -TRAM-297 PO; +VERA40TA PO; +ZOFR4T PO
--- NOTE | 2024-04-14 07:57 | ECG ---
[facility] Test Date: 2024-04-14 Test Time: 07:55:46 Pat Name: JACE HUANG Department: ER Room: Gender: F Manager Air: LANI : 1965 Requested By: YESSENIA SHORT Order Number: [id number] Reading MD: Valentin Smith Measurements Intervals [place] Rate: 60 P: 68 [place]: 175 QRS: 63 QRSD: 99 T: 50 QT: 474 QTc: 474 Interpretive Statements Sinus rhythm Left atrial enlargement Borderline low voltage, extremity leads Electronically Signed On 04-15-2024 18:45:18 PST by Valentin Smith Please click the below link to view image of tracing.
[2024-04-14] MEDS: ASPirin 81 mg TAB PO ONE (08:00)
[2024-04-14] MEDS: SODIUM CHLORIDE 0.9% 500 ML IV ONE (08:02)
[2024-04-14] MEDS: ONDANSETRON HCL 4 MG/2 ML VIAL IV ONE (08:03)
[2024-04-14] MEDS: MORPHINE SULFATE 4 MG/ML SYR/VIAL IV ONE ×2 (08:04→10:17)
--- NOTE | 2024-04-14 08:08 | ED.PDOC ---
HPI Comments 59-year-old female brought in by EMS presents with a chief complaint of chest pain and palpitations x onset last night. Patient states that she was watching TV when she began to have sudden onset of tightness in her chest and palpitations. Patient reports that she tried to relax, but was unable to rest all night which is when she decided to call EMS. Patient reports that she checked her BP and it read high at 168/111. Patient is anxious upon evaluation and fidgeting. Chief Complaint: Chest Pain Time Seen by MD: 07:43 Primary Care Provider: david Escobedo Notes: Medications, Allergies Allergies: Coded Allergies: Tetracycline (Verified Allergy, Unknown, ADVERSE REACTION, 10/09/18) RASH Home Meds Active Scripts Verapamil HCl (Verapamil Hydrochloride) 40 Mg Tab, 20 MG PO BID, #30 TAB Take half a tablet 20 mg by mouth twice a day. Hold if your systolic blood pressure is less than 100. Prov:JESUS ALBERTO LAUREN MD 10/10/23 Pantoprazole Sodium Sesquihydr (Pantoprazole Sodium) 40 Mg Tab, 40 MG PO DAILY, #30 TAB Prov:JESUS ALBERTO LAUREN MD 10/09/23 Ondansetron Odt 4MG Tab (ZOFRAN PO) 4 Mg Tb, 4 MG PO Q6HPRN PRN, #10 TAB ODT TAB-DISSOLVE IN MOUTH, THEN SWALLOW Prov:JESUS ALBERTO LAUREN MD 10/09/23 Reported Medications Olmesartan Medoxomil (Benicar) 40 Mg Tab, 1 TAB PO DAILY, #30 TAB 5 Refills 10/08/23 Information Source: Patient Mode of Arrival: EMS Severity: Moderate Timing: Hours Duration: Since onset Prehospital treatment: None Location: Chest (L) Radiation: No Radiation Quality: Tightness Onset: At Rest Cardiac Risk Factors: None PE Risk Factors: None History of: None Associated Signs and Symptoms: Palpitations Past Medical History PAST MEDICAL HISTORY: Anxiety, HTN POLISHER ALUMINUM History: No Pertinent POLISHER ALUMINUM History Family History Family History: Reviewed,noncontributory to illness, No family hx of Cancer Social History Smoker: Cigarettes, Less Than 1 Pack/Day Alcohol: Denies ETOH Use Drugs: Denies Drug Use Lives In: Home Constitutional: denies: chills, diaphoresis, fatigue, fever, malaise, sweats, weakness, others EENTM: denies: blurred vision, double vision, ear bleeding, ear discharge, ear drainage, ear pain, ear ringing, eye pain, eye redness, hearing loss, mouth pain, mouth swelling, nasal discharge, nose bleeding, nose congestion, nose pain, photophobia, tearing, throat pain, throat swelling, voice changes, others Respiratory: denies: cough, hemoptysis, orthopnea, SOB at rest, shortness of breath, SOB with excertion, stridor, wheezing, others Cardiovascular: reports: palpitations; denies: chest pain, dizzy spells, diaphoresis, Dyspnea on exertion, edema, irregular heart beat, left arm pain, lightheadedness, PND, syncope, others Gastrointestinal: denies: abdomen distended, abdominal pain, blood streaked bowels, constipated, diarrhea, dysphagia, difficulty swallowing, hematemesis, melena, nausea, poor appetite, poor fluid intake, rectal bleeding, rectal pain, vomiting, others Genitourinary: denies: abnormal vagina bleeding, burning, dyspareunia, dysuria, flank pain, frequency, hematuria, incontinence, pain, , vagina discharge, urgency, others Neurological: denies: dizziness, fainting, headache, left sided numbness, left sided weakness, numbness, paresthesia, pre-existing deficit, right sided numbness, right sided weakness, seizure, speech problems, tingling, tremors, weakness, others Musculoskeletal: denies: back pain, gout, joint pain, joint swelling, muscle pain, muscle stiffness, neck pain, others Integumetry: denies: bruises, change in color, change in hair/nails, dryness, laceration, lesions, lumps, rash, wounds, others Allergic/Immunocompromised: denies: Difficulty Healing, Frequent Infections, Hives, Itching, others Hematologic/Lymphatic: denies: anemia, blood clots, easy bleeding, easy bruising, swollen glands, others Endocrine: denies: excessive hunger, excessive sweating, excessive thirst, excessive urination, flushing, intolerance to cold, intolerance to heat, unexplained weight gain, unexplained weight loss, others Psychiatric: reports: anxiety; denies: bipolar disorder, depression, hopeless, panic disorder, schizophrenia, sleepless, suicidal, others All Other Systems: Reviewed and Negative Physical Exam General Appearance: Moderate Distress, Thin, Other HEENT: Normal ENT Inspection, Pharynx Normal, TMs Normal Neck: Full Range of Motion, Non-Tender, Normal, Normal Inspection Respiratory: Chest Non-Tender, Lungs Clear, No Accessory Muscle Use, No Respiratory Distress, Normal Breath Sounds Cardiovascular: No Edema, No JVD, No Murmur, No Gallop, Normal Peripheral Pulses, Regular Rate/Rhythm Breast Exam: Deferred Gastrointestinal: No Organomegaly, Non Tender, No Pulsatile Mass, Normal Bowel Sounds, Soft Genitalia: Deferred Pelvic: Deferred Rectal: Deferred Extremities: No calf tenderness, Normal capillary refill, Normal inspection, Normal range of motion, Non-tender, No pedal edema Musculoskeletal : Apperance: Normal Neurologic: Alert, No Motor Deficits, Normal Affect, Normal Mood, No Sensory Deficits Cerebellar Function: Normal Reflexes: Normal Skin: Dry, Normal Color, Warm Lymphatic: No Adenopathy EKG EKG #1: Pulse Rate (adult): 77 Frannie: Normal Cardiac Rhythm: NSR Block: None Hypertrophy: None ST: Nonsp EKG #2: Pulse Rate (adult): 60 Frannie: Normal Cardiac Rhythm: NSR Block: None Hypertrophy: None ST: Normal Comments 0755am EKG #3: Pulse Rate (adult): 65 Frannie: Normal Cardiac Rhythm: NSR Block: None Hypertrophy: None ST: Normal Was a procedure done? Was a procedure done?: No CP Differential Dx Differential Diagnosis: A-Flutter, Angina, Anxiety / Panic Attack, Electrolyte Disorder, PSVT X-Ray, Labs, Meds, VS Vital Signs Date Time Temp Pulse Resp B/P (MAP) Pulse Ox O2 Delivery O2 Flow Rate FiO2 04/14/24 11:04 71 17 133/99 04/14/24 11:03 71 17 133/99 (110) 97 04/14/24 10:18 65 04/14/24 10:17 75 18 153/91 04/14/24 10:11 75 18 153/91 (111) 98 04/14/24 10:02 65 04/14/24 09:02 180/115 04/14/24 09:00 70 13 98 Room Air* 0 21 04/14/24 09:00 70 13 180/115 04/14/24 09:00 97.9 70 13 180/115 (136) 98 97.9 04/14/24 08:08 60 04/14/24 08:04 81 16 164/119 04/14/24 07:55 60 04/14/24 07:40 86 04/14/24 07:40 97.9 86 17 157/108 (124) 96 97.9 04/14/24 07:30 98.9 82 14 170/101 (124) 100 04/14/24 07:10 77 Lab Test 04/14/24 09:07 04/14/24 08:08 Range/Units Troponin I High Sensitivity 4 4 </=34 ng/L White Blood Count 6.2 4.4-10.8 10^3/uL Red Blood Count 5.14 4.0-5.20 10^6/uL Hemoglobin 15.1 12.2-16.2 g/dL Hematocrit 45.0 36.0-46.0 % Mean Corpuscular Volume 87.5 80.0-100.0 fL Mean Corpuscular Hemoglobin 29.4 28.0-32.0 pg Mean Corpuscular Hemoglobin Concent 33.6 32.0-36.0 g/dL Red Cell Distribution Width 14.7 H 11.8-14.3 % Platelet Count 277 140-450 10^3/uL Mean Platelet Volume 7.1 6.9-10.8 fL Neutrophils (%) (Auto) 64.5 37.0-80.0 % Lymphocytes (%) (Auto) 25.2 10.0-50.0 % Monocytes (%) (Auto) 8.3 0.0-12.0 % Eosinophils (%) (Auto) 0.8 0.0-7.0 % Basophils (%) (Auto) 1.2 0.0-2.0 % Neutrophils # (Auto) 4.0 1.6-8.6 10 ^3/uL Lymphocytes # (Auto) 1.6 0.4-5.4 10 ^3/uL Monocytes # (Auto) 0.5 0-1.3 10 ^3/uL Eosinophils # (Auto) 0.1 0-0.8 10 ^3/uL Basophils # (Auto) 0.1 0-0.2 10 ^3/uL Nucleated Red Blood Cells 0.1 % Sodium Level 138 136-145 mmol/L Potassium Level 4.3 3.5-5.1 mmol/L Chloride Level 105 98-107 mmol/L Carbon Dioxide Level 27 20-31 mmol/L Anion Gap 6 5-15 Blood Urea Nitrogen 20 9-23 mg/dL Creatinine 0.92 0.550-1.02 mg/dL Glomerular Filtration Rate Calc 71 >90 mL/min BUN/Creatinine Ratio 21.7 H 10.0-20.0 Serum Glucose 105 74-106 mg/dL Calcium Level 10.0 8.7-10.4 mg/dL Current Medications Medications (Trade) Dose Ordered Sig/Maryjane Route Start Time Stop Time Status Last Admin Morphine Sulfate 4 mg ONCE ONCE IV 04/14/24 08:00 04/14/24 08:01 DC 04/14/24 08:04 Sodium Chloride 500 ml @ 500 mls/hr Q1H ONCE IV 04/14/24 08:00 04/14/24 08:59 DC 04/14/24 08:02 Ondansetron HCl (Zofran) 4 mg ONCE ONCE IV 04/14/24 08:00 04/14/24 08:01 DC 04/14/24 08:03 Aspirin 324 mg ONCE ONCE PO 04/14/24 08:00 04/14/24 08:01 DC 04/14/24 08:00 Hydralazine HCl (Apresoline Injection) 5 mg ONCE ONCE IV 04/14/24 08:30 04/14/24 08:31 DC 04/14/24 09:02 Acetaminophen (Tylenol Tablet) 650 mg ONCE ONCE PO 04/14/24 09:15 04/14/24 09:16 DC 04/14/24 09:14 Morphine Sulfate 4 mg ONCE ONCE IV 04/14/24 10:15 04/14/24 10:16 DC 04/14/24 10:17 59-year-old female presents here with chest discomfort and high blood pressure. Patient was in moderate distress upon arrival in the ER. Nursing staff contacted me to see the patient immediately. Patient was initially given morphine 4 mg IV and Zofran IV by myself to help alleviate her chest pain and help with her blood pressure as her chest pain could be causing the blood pressure. However there was no change in either with the morphine. Patient was then given hydralazine, again with no significant improvement in her blood p ressure. At this time EKG has been repeated x3 which continues to be unchanged and negative. No significant ST changes. Blood work has been done which is largely unremarkable with a normal troponin x3. I have had to give her additional morphine due to her continued chest discomfort. An additional hydralazine for her continued high blood pressure. At this time she has required multiple re-evaluations by myself. I am concerned her high blood pressure is causing her chest discomfort. At this time choice hospitalist team has been contacted for admission. Time of 1ST Reevaluation: 08:13 Reevaluation 1ST: Unchanged Time of 2ND Reevaluation: 10:13 Reevaluation 2ND: Unchanged Patient Education/Counseling: Diagnosis, Treatment, Prognosis Family Education/Counseling: Diagnosis, Treatment, Prognosis Departure 1 Departure Time of Disposition: :43 Impression: Primary Impression: Chest pain Qualified Codes: R07.9 - Chest pain, unspecified Additional Impression: Hypertensive emergency Disposition: ADMITTED INPATIENT Admit to: [facility] Condition: Serious Critical Care Note Critical Care Time?: Yes Critical care comment: 40 minutes of critical care time. Time spent immediately evaluated the patient. Concern for hypertensive emergency NSTEMI and immediate deterioration.. Time spent with multiple re-evaluations of the patient. Speaking to patient and family. Evaluating lab work. Speaking to hospitalist team for admission. Stability Stability form required: No Heart Score Heart Score: Heart Score Response (Comments) Value History Moderate Suspicious 1 EKG Normal 0 Age 45-64 1 Risk Factors 1 or 2 risk factors 1 Troponin Normal limit 0 Total 3 I personally scribed for YESSENIA SHORT MD ([email or web address]) on 04/14/24 at 08:08. Electronically submitted by Jeffry Gabriel ([email or web address]). I personally scribed for YESSENIA SHORT MD ([email or web address]) on 04/14/24 at 10:18. Electronically submitted by Jeffry Gabriel ([email or web address]). YESSENIA SHORT MD Apr 14, 2024 08:08
[2024-04-14 08:23] LABS: Basophils # (auto) 0.1 10 ^3/uL (0-0.2); Basophils % (auto) 1.2 % (0.0-2.0); Eosinophils # (auto) 0.1 10 ^3/uL (0-0.8); Eosinophils % (auto) 0.8 % (0.0-7.0); Hemoglobin 15.1 g/dL (12.2-16.2); Lymphocytes # (auto) 1.6 10 ^3/uL (0.4-5.4); Lymphocytes % (auto) 25.2 % (10.0-50.0); Mean Corpuscular Hemoglobin 29.4 pg (28.0-32.0); Mean Corpuscular Hgb Conc. 33.6 g/dL (32.0-36.0); Mean Corpuscular Volume 87.5 fL (80.0-100.0); Monocytes # (auto) 0.5 10 ^3/uL (0-1.3); Monocytes % (auto) 8.3 % (0.0-12.0); Neutrophils % (auto) 64.5 % (37.0-80.0); Nucleated Red Blood Cells % 0.1 %; Platelet Count (auto) 277 10^3/uL (140-450); Red Blood Cells 5.14 10^6/uL (4.0-5.20); Red Cell Distribution Width 14.7 % (11.8-14.3); White Blood Cell 6.2 10^3/uL (4.4-10.8)
[2024-04-14 08:40] LABS: Chloride 105 mmol/L (98-107); Potassium 4.3 mmol/L (3.5-5.1); Sodium 138 mmol/L (136-145)
[2024-04-14 08:41] LABS: Anion Gap 6 (5-15); Carbon Dioxide 27 mmol/L (20-31)
[2024-04-14 08:46] LABS: BUN/Creatinine Ratio 21.7 (10.0-20.0); Blood Urea Nitrogen 20 mg/dL (9-23); Glucose 105 mg/dL (74-106)
--- NOTE | 2024-04-14 08:48 | DVH ---
EXAM: XY CHEST TWO VIEWS ROUTINE HISTORY: chest pain COMPARISON: XY CHEST TWO VIEWS ROUTINE on DOS: 09/10/23 TECHNIQUE: Frontal and lateral views of the chest were performed. FINDINGS: No pneumothorax, pulmonary edema, pleural effusions, or consolidative infiltrates. There may be emphy sematous changes of the upper lobes. The heart is not enlarged. No fractures are identified about th e bony thorax. There are postoperative changes thoracolumbar posterior fusion, not fully imaged here. There is thoracic degenerative disc disease and mild dextroscoliosis. IMPRESSION: 1. No acute intrathoracic process. 2. Possible upper lobe emphysema.
[2024-04-14 09:00] VITALS: PULSE 70; RESP 13; TEMP 97.9; O2SAT 98
[2024-04-14] MEDS: hydrALAZINE HCL 20 MG/ML VL IV ONE ×2 (09:02→12:02)
[2024-04-14] MEDS: ACETAMINOPHEN 325 MG TAB PO ONE (09:14)
--- NOTE | 2024-04-14 15:18 | DVHINCON2 ---
Date Seen: Apr 14, 2024 Referring Physician MD Fabby Reason for Consultation Palpitations History of Present Illness This is a 59-year-old female who presented to the emergency room via EMS with a chief complaint of palpitations last night. The patient reports she was watching TV at the onset of symptoms with palpitations lasting approximately 10- 12 minutes and reoccurrence one more time throughout the night. She has a significant medical history for supraventricular tachycardia and currently on verapamil therapy. Reports seeing Dr. Davila approximally six months ago and undergoing a Holter monitor. Somehow the patient failed to follow up on results. She underwent multiple 12 lead electrocardiogram revealing a sinus rhythm suggestive of left atrial enlargement. Significant medical history includes paroxysmal supraventricular tachycardia status post DCCV, hypertension, anxiety, and tobacco use. Past Medical History Past medical history reviewed. No other significant than mentioned above. Past Surgical History Spinal surgery Family History: Cardiovascular disease GRANDPA FH: cancer FH: lung cancer G8 MOTHER Pleural effusion G8 MOTHER, Onset:Unknown Rectal cancer G8 FATHER, , Cause: Rectal cancer, Onset:Unknown Thyroid disease G8 SISTER, Onset:Unknown Family History Family history reviewed. Social History Denies the use of illicit drugs or alcohol. Smokes < one pack of cigarettes per week. Allergies: Coded Allergies: Tetracycline (Verified Allergy, Unknown, ADVERSE REACTION, 10/09/18) RASH Home Meds Active Scripts Verapamil HCl (Verapamil Hydrochloride) 40 Mg Tab, 20 MG PO BID, #30 TAB Take half a tablet 20 mg by mouth twice a day. Hold if your systolic blood pressure is less than 100. Prov:JESUS ALBERTO LAUREN MD 10/10/23 Pantoprazole Sodium Sesquihydr (Pantoprazole Sodium) 40 Mg Tab, 40 MG PO DAILY, #30 TAB Prov:JESUS ALBERTO LAUREN MD 10/09/23 Ondansetron Odt 4MG Tab (ZOFRAN PO) 4 Mg Tb, 4 MG PO Q6HPRN PRN, #10 TAB ODT TAB-DISSOLVE IN MOUTH, THEN SWALLOW Prov:JESUS ALBERTO LAUREN MD 10/09/23 Reported Medications Olmesartan Medoxomil (Benicar) 40 Mg Tab, 1 TAB PO DAILY, #30 TAB 5 Refills 10/08/23 Home Meds Home medications reviewed. Review of Systems Constitutional: No symptom reported Ears, Nose, & Throat: No symptom reported Eyes: No symptom reported Neurological: No symptoms reported Pulmonary/Respiratory: No symptom reported Cardiovascular: Palpitations Gastrointestinal: No symptom reported Genitourinary: No symptom reported Musculoskeletal: No symptom reported Skin: No symptom reported Psychiatric: No symptom reported Endocrine: No symptom reported Hemotologic/Lymphatic: No symptom reported Vital Signs Vital Signs Date Time Temp Pulse Resp B/P (MAP) Pulse Ox O2 Delivery O2 Flow Rate FiO2 04/14/24 13:00 76 12 126/82 (97) 95 04/14/24 09:00 Room Air* 0 21 04/14/24 09:00 97.9 97.9 Physical Exam General Appearance: Cooperative. Well developed. Well nourished. In no acute distress. Very anxious Head Exam: Normal inspection Neck Exam: Normal inspection. Non-tender. Normal alignment Pulmonary/Respiratory: Chest non-tender. Clear bilateral breath sounds Cardiovascular/Chest: Regular rate and rhythm. S1, S2. NSR. No murmurs. No JVD. Peripheral Pulses: 2+ Radial (R). 2+ Radial (L). 2+ Pedal (R). 2+ Pedal (L) Abdominal Exam: Normal bowel sounds. Soft. Nontender. No hepatospenomegaly. No masses Ankle Exam: Negative ankle edema Lower extremities: Negative lower extremity edema Neuro/Mental Status: A&O x4. Coherent Thoughts/Psych: Normal thought pattern. Very anxious Appearance: In no acute distress Skin Exam: Normal inspection. Normal color. Warm. Dry Labs/Diagnostic Data Labs Test 04/14/24 09:07 04/14/24 08:08 Range/Units Troponin I High Sensitivity 4 </=34 ng/L White Blood Count 6.2 4.4-10.8 10^3/uL Red Blood Count 5.14 4.0-5.20 10^6/uL Hemoglobin 15.1 12.2-16.2 g/dL Hematocrit 45.0 36.0-46.0 % Mean Corpuscular Volume 87.5 80.0-100.0 fL Mean Corpuscular Hemoglobin 29.4 28.0-32.0 pg Mean Corpuscular Hemoglobin Concent 33.6 32.0-36.0 g/dL Red Cell Distribution Width 14.7 H 11.8-14.3 % Platelet Count 277 140-450 10^3/uL Mean Platelet Volume 7.1 6.9-10.8 fL Neutrophils (%) (Auto) 64.5 37.0-80.0 % Lymphocytes (%) (Auto) 25.2 10.0-50.0 % Monocytes (%) (Auto) 8.3 0.0-12.0 % Eosinophils (%) (Auto) 0.8 0.0-7.0 % Basophils (%) (Auto) 1.2 0.0-2.0 % Neutrophils # (Auto) 4.0 1.6-8.6 10 ^3/uL Lymphocytes # (Auto) 1.6 0.4-5.4 10 ^3/uL Monocytes # (Auto) 0.5 0-1.3 10 ^3/uL Eosinophils # (Auto) 0.1 0-0.8 10 ^3/uL Basophils # (Auto) 0.1 0-0.2 10 ^3/uL Nucleated Red Blood Cells 0.1 % Sodium Level 138 136-145 mmol/L Potassium Level 4.3 3.5-5.1 mmol/L Chloride Level 105 98-107 mmol/L Carbon Dioxide Level 27 20-31 mmol/L Anion Gap 6 5-15 Blood Urea Nitrogen 20 9-23 mg/dL Creatinine 0.92 0.550-1.02 mg/dL Glomerular Filtration Rate Calc 71 >90 mL/min BUN/Creatinine Ratio 21.7 H 10.0-20.0 Serum Glucose 105 74-106 mg/dL Calcium Level 10.0 8.7-10.4 mg/dL Assessment Palpitations rule out cardiac arrhythmias HX of SVT status post DCCV Hypertension Tobacco use Anxiety Plan/Recommendation (Dr. Smith) The patient with cardiac palpitations was offered to continue telemetry monitoring overnight and a transthoracic echocardiogram for further evaluation. Patient prefers to be discharged home and follow-up with Dr. Davila as an outpatient. There were no cardiac arrhythmias identified during admission. We recommend an event monitor, transthoracic echocardiogram, electrolyte and TSH levels as outpatient. Transthoracic echocardiogram from 08/19/2023 revealed EF 60-65%. Given the patient's cessation, there is no further cardiac workup indicated at this time. Kindly call if in need to re-consult. Thank you for allowing us to participate in this patient's care. This medical document was created using an electronic medical record system with voice recognition software and computerized dictation system. Although this document has been carefully reviewed, there might still be some phonetic and typographical errors. Occasional wrong-word or ``sound-alike substitutions may have occurred due to the inherent limitations of voice recognition software. These areas are purely typographical due to imperfections of the software programs and do not reflect any compromise in the patient's medical care. Please read the chart carefully and recognize, using context, where these substitutions have occurred. Plan discussed with: Patient, Other NYHA Physical activity limitations: NA Date of Service: Apr 14, 2024 Billing Provider: YESSICA RUIZ Cardiology Common Codes: [id number] INP/OBS CARE (High) YESSICA RUIZ Apr 14, 2024 15:18
[2024-04-14 16:00] VITALS: BP 127/73; PULSE 72; RESP 12; O2SAT 95
--- NOTE | 2024-04-14 16:11 | DVHINCON2 ---
Family History: Cardiovascular disease GRANDPA FH: cancer FH: lung cancer G8 MOTHER Pleural effusion G8 MOTHER, Onset:Unknown Rectal cancer G8 FATHER, , Cause: Rectal cancer, Onset:Unknown Thyroid disease G8 SISTER, Onset:Unknown Allergies: Coded Allergies: Tetracycline (Verified Allergy, Unknown, ADVERSE REACTION, 10/09/18) RASH Home Meds Active Scripts Verapamil HCl (Verapamil Hydrochloride) 40 Mg Tab, 20 MG PO BID, #30 TAB Take half a tablet 20 mg by mouth twice a day. Hold if your systolic blood pressure is less than 100. Prov:JESUS ALBERTO LAUREN MD 10/10/23 Pantoprazole Sodium Sesquihydr (Pantoprazole Sodium) 40 Mg Tab, 40 MG PO DAILY, #30 TAB Prov:JESUS ALBERTO LAUREN MD 10/09/23 Ondansetron Odt 4MG Tab (ZOFRAN PO) 4 Mg Tb, 4 MG PO Q6HPRN PRN, #10 TAB ODT TAB-DISSOLVE IN MOUTH, THEN SWALLOW Prov:JESUS ALBERTO LAUREN MD 10/09/23 Reported Medications Olmesartan Medoxomil (Benicar) 40 Mg Tab, 1 TAB PO DAILY, #30 TAB 5 Refills 10/08/23 Vital Signs Vital Signs Date Time Temp Pulse Resp B/P (MAP) Pulse Ox O2 Delivery O2 Flow Rate FiO2 04/14/24 13:00 76 12 126/82 (97) 95 04/14/24 09:00 Room Air* 0 21 04/14/24 09:00 97.9 97.9 Labs/Diagnostic Data Labs Test 04/14/24 09:07 04/14/24 08:08 Range/Units Troponin I High Sensitivity 4 </=34 ng/L White Blood Count 6.2 4.4-10.8 10^3/uL Red Blood Count 5.14 4.0-5.20 10^6/uL Hemoglobin 15.1 12.2-16.2 g/dL Hematocrit 45.0 36.0-46.0 % Mean Corpuscular Volume 87.5 80.0-100.0 fL Mean Corpuscular Hemoglobin 29.4 28.0-32.0 pg Mean Corpuscular Hemoglobin Concent 33.6 32.0-36.0 g/dL Red Cell Distribution Width 14.7 H 11.8-14.3 % Platelet Count 277 140-450 10^3/uL Mean Platelet Volume 7.1 6.9-10.8 fL Neutrophils (%) (Auto) 64.5 37.0-80.0 % Lymphocytes (%) (Auto) 25.2 10.0-50.0 % Monocytes (%) (Auto) 8.3 0.0-12.0 % Eosinophils (%) (Auto) 0.8 0.0-7.0 % Basophils (%) (Auto) 1.2 0.0-2.0 % Neutrophils # (Auto) 4.0 1.6-8.6 10 ^3/uL Lymphocytes # (Auto) 1.6 0.4-5.4 10 ^3/uL Monocytes # (Auto) 0.5 0-1.3 10 ^3/uL Eosinophils # (Auto) 0.1 0-0.8 10 ^3/uL Basophils # (Auto) 0.1 0-0.2 10 ^3/uL Nucleated Red Blood Cells 0.1 % Sodium Level 138 136-145 mmol/L Potassium Level 4.3 3.5-5.1 mmol/L Chloride Level 105 98-107 mmol/L Carbon Dioxide Level 27 20-31 mmol/L Anion Gap 6 5-15 Blood Urea Nitrogen 20 9-23 mg/dL Creatinine 0.92 0.550-1.02 mg/dL Glomerular Filtration Rate Calc 71 >90 mL/min BUN/Creatinine Ratio 21.7 H 10.0-20.0 Serum Glucose 105 74-106 mg/dL Calcium Level 10.0 8.7-10.4 mg/dL AMARI TRUONG MD Apr 14, 2024 16:11
--- NOTE | 2024-04-14 16:33 | ECG ---
[facility] Test Date: 2024-04-14 Test Time: 10:02:35 Pat Name: JACE HUANG Department: ER Room: Gender: F Parole Director: LANI : 1965 Requested By: YESSENIA SHORT Order Number: [id number] Reading MD: Valentin Smith Measurements Intervals [place] Rate: 65 P: 66 [place]: 183 QRS: -13 QRSD: 105 T: 57 QT: 455 QTc: 474 Interpretive Statements Sinus rhythm Probable inferior infarct, old Electronically Signed On 04-15-2024 18:46:20 PST by Valentin Smith Please click the below link to view image of tracing.
--- NOTE | 2024-04-16 14:01 | ECG ---
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
== END 2024-04-14 16:37 | disposition home or self-care (01) ==
LOC: ER 07:07 → EDBD 07:07 → ER 16:37
DX: R07.89 Other chest pain (principal); I16.1 Hypertensive emergency; R00.2 Palpitations; F41.9 Anxiety disorder, unspecified; F17.210 Nicotine dependence, cigarettes, uncomplicated; Z79.899 Other long term (current) drug therapy; Z86.79 Personal history of other diseases of the circulatory system; Z88.1 Allergy status to other antibiotic agents
CPT/HCPCS: 36415; 71046; 80048; 84484; 85025; 93005; 96374; 96375; 96376; 99285; J0360; J2270; J2405; J7040

== ENCOUNTER 2024-04-17 21:17 | Inpatient (IN) | payer OTHER ==
[~2024-04-17] VITALS: Ht 167.6 cm; Wt 56.8 kg
[2024-04-17 21:59] LABS: Basophils # (auto) 0.1 10 ^3/uL (0-0.2); Basophils % (auto) 1.5 % (0.0-2.0); Eosinophils # (auto) 0.1 10 ^3/uL (0-0.8); Hematocrit 41.6 % (36.0-46.0); Hemoglobin 14.4 g/dL (12.2-16.2); Lymphocytes % (auto) 27.6 % (10.0-50.0); Mean Corpuscular Hemoglobin 30.3 pg (28.0-32.0); Mean Corpuscular Hgb Conc. 34.5 g/dL (32.0-36.0); Mean Corpuscular Volume 87.6 fL (80.0-100.0); Monocytes # (auto) 0.8 10 ^3/uL (0-1.3); Monocytes % (auto) 10.8 % (0.0-12.0); Neutrophils # (auto) 4.4 10 ^3/uL (1.6-8.6); Neutrophils % (auto) 59.1 % (37.0-80.0); Nucleated Red Blood Cells % 0.1 %; Platelet Count (auto) 243 10^3/uL (140-450); Red Blood Cells 4.75 10^6/uL (4.0-5.20); Red Cell Distribution Width 14.3 % (11.8-14.3); White Blood Cell 7.4 10^3/uL (4.4-10.8)
--- NOTE | 2024-04-17 22:09 | ED.PDOC ---
History of Present Illness HPI Comments 5o-year-old female brought in by EMS presents to the ED with a chief complaint of headache onset today (04/17/24). Per EMS, patient BP upon their arrival was 219/123. Patient states she began experiencing blurred vision, headache, took BP medication with no improvement. Patient was seen in this ED 04/14/24 for similar symptoms, was going to be admitted and patient decided to go home. Patient is aware admission is possible and states she is willing to stay. Patient called 911 due to worsen symptoms as well as persistent chest pain with shortness of breath for the past 4 days. PMHx anxiety, HTN. Denies nausea, vomiting, diarrhea, abdominal pain, fevers, chills, cough, congestion. No other symptoms or modifying factors present at this time. Chief Complaint: Headache Time Seen by MD: 21:46 Primary Care Provider: david Escobedo Notes: Medications, Allergies Allergies: Coded Allergies: Tetracycline (Verified Allergy, Unknown, ADVERSE REACTION, 10/09/18) RASH Home Meds Active Scripts Verapamil HCl (Verapamil Hydrochloride) 40 Mg Tab, 20 MG PO BID, #30 TAB Take half a tablet 20 mg by mouth twice a day. Hold if your systolic blood pressure is less than 100. Prov:JESUS ALBERTO LAUREN MD 10/10/23 Pantoprazole Sodium Sesquihydr (Pantoprazole Sodium) 40 Mg Tab, 40 MG PO DAILY, #30 TAB Prov:JESUS ALBERTO LAUREN MD 10/09/23 Ondansetron Odt 4MG Tab (ZOFRAN PO) 4 Mg Tb, 4 MG PO Q6HPRN PRN, #10 TAB ODT TAB-DISSOLVE IN MOUTH, THEN SWALLOW Prov:JESUS ALBERTO LAUREN MD 10/09/23 Reported Medications Olmesartan Medoxomil (Benicar) 40 Mg Tab, 1 TAB PO DAILY, #30 TAB 5 Refills 10/08/23 Information Source: Patient, Emergency Med Personnel, Spouse Mode of Arrival: EMS Severity: Moderate Timing: Days Duration: Since onset Prehospital treatment: None Past Medical History PAST MEDICAL HISTORY: Anxiety, HTN WELFARE ADVISER History: No Pertinent WELFARE ADVISER History Family History Family History: Reviewed,noncontributory to illness, No family hx of Cancer Social History Smoker: Cigarettes, Less Than 1 Pack/Day Alcohol: Denies ETOH Use Drugs: Denies Drug Use Lives In: Home Constitutional: denies: chills, diaphoresis, fatigue, fever, malaise, sweats, weakness, others EENTM: reports: blurred vision; denies: double vision, ear bleeding, ear discharge, ear drainage, ear pain, ear ringing, eye pain, eye redness, hearing loss, mouth pain, mouth swelling, nasal discharge, nose bleeding, nose congestion, nose pain, photophobia, tearing, throat pain, throat swelling, voice changes, others Respiratory: reports: shortness of breath; denies: cough, hemoptysis, orthopnea, SOB at rest, SOB with excertion, stridor, wheezing, others Cardiovascular: reports: chest pain; denies: dizzy spells, diaphoresis, Dyspnea on exertion, edema, irregular heart beat, left arm pain, lightheadedness, palpitations, PND, syncope, others Gastrointestinal: denies: abdomen distended, abdominal pain, blood streaked bowels, constipated, diarrhea, dysphagia, difficulty swallowing, hematemesis, melena, nausea, poor appetite, poor fluid intake, rectal bleeding, rectal pain, vomiting, others Genitourinary: denies: abnormal vagina bleeding, burning, dyspareunia, dysuria, flank pain, frequency, hematuria, incontinence, pain, , vagina discharge, urgency, others Neurological: reports: headache; denies: dizziness, fainting, left sided numbness, left sided weakness, numbness, paresthesia, pre-existing deficit, right sided numbness, right sided weakness, seizure, speech problems, tingling, tremors, weakness, others Musculoskeletal: denies: back pain, gout, joint pain, joint swelling, muscle pain, muscle stiffness, neck pain, others Integumetry: denies: bruises, change in color, change in hair/nails, dryness, laceration, lesions, lumps, rash, wounds, others Allergic/Immunocompromised: denies: Difficulty Healing, Frequent Infections, Hives, Itching, others Hematologic/Lymphatic: denies: anemia, blood clots, easy bleeding, easy bruising, swollen glands, others Endocrine: denies: excessive hunger, excessive sweating, excessive thirst, excessive urination, flushing, intolerance to cold, intolerance to heat, unexplained weight gain, unexplained weight loss, others Psychiatric: denies: anxiety, bipolar disorder, depression, hopeless, panic disorder, schizophrenia, sleepless, suicidal, others All Other Systems: Reviewed and Negative Physical Exam General Appearance: No Apparent Distress, Normal HEENT: Normal ENT Inspection, Pharynx Normal, TMs Normal Neck: Full Range of Motion, Non-Tender, Normal, Normal Inspection Respiratory: Chest Non-Tender, Lungs Clear, No Accessory Muscle Use, No Respiratory Distress, Normal Breath Sounds Cardiovascular: No Edema, No JVD, No Murmur, No Gallop, Normal Peripheral Pulses, Regular Rate/Rhythm Breast Exam: Deferred Gastrointestinal: No Organomegaly, Non Tender, No Pulsatile Mass, Normal Bowel Sounds, Soft Genitalia: Deferred Pelvic: Deferred Rectal: Deferred Extremities: No calf tenderness, Normal capillary refill, Normal inspection, Normal range of motion, Non-tender, No pedal edema Musculoskeletal : Apperance: Normal Neurologic: Alert, open die inspector II-XII nml as Tested, No Motor Deficits, Normal Affect, Normal Mood, No Sensory Deficits Cerebellar Function: Normal Reflexes: Normal Skin: Dry, Normal Color, Warm Lymphatic: No Adenopathy Was a procedure done? Was a procedure done?: No Differential Dx Considerations may include: ACS, viral syndrome, hypertensive emergency, pneumonia X-Ray, Labs, Meds, VS Vital Signs Date Time Temp Pulse Resp B/P (MAP) Pulse Ox O2 Delivery O2 Flow Rate FiO2 04/18/24 00:00 88 04/17/24 23:28 171/114 04/17/24 23:10 98.2 75 16 171/114 (133) 97 98.2 04/17/24 21:30 98.0 94 16 219/123 (155) 96 04/17/24 21:29 72 Lab Test 04/17/24 22:47 04/17/24 21:46 Range/Units Troponin I High Sensitivity 7 5 </=34 ng/L White Blood Count 7.4 4.4-10.8 10^3/uL Red Blood Count 4.75 4.0-5.20 10^6/uL Hemoglobin 14.4 12.2-16.2 g/dL Hematocrit 41.6 36.0-46.0 % Mean Corpuscular Volume 87.6 80.0-100.0 fL Mean Corpuscular Hemoglobin 30.3 28.0-32.0 pg Mean Corpuscular Hemoglobin Concent 34.5 32.0-36.0 g/dL Red Cell Distribution Width 14.3 11.8-14.3 % Platelet Count 243 140-450 10^3/uL Mean Platelet Volume 7.1 6.9-10.8 fL Neutrophils (%) (Auto) 59.1 37.0-80.0 % Lymphocytes (%) (Auto) 27.6 10.0-50.0 % Monocytes (%) (Auto) 10.8 0.0-12.0 % Eosinophils (%) (Auto) 1.0 0.0-7.0 % Basophils (%) (Auto) 1.5 0.0-2.0 % Neutrophils # (Auto) 4.4 1.6-8.6 10 ^3/uL Lymphocytes # (Auto) 2.0 0.4-5.4 10 ^3/uL Monocytes # (Auto) 0.8 0-1.3 10 ^3/uL Eosinophils # (Auto) 0.1 0-0.8 10 ^3/uL Basophils # (Auto) 0.1 0-0.2 10 ^3/uL Nucleated Red Blood Cells 0.1 % Sodium Level 139 136-145 mmol/L Potassium Level 4.3 3.5-5.1 mmol/L Chloride Level 105 98-107 mmol/L Carbon Dioxide Level 27 20-31 mmol/L Anion Gap 7 5-15 Blood Urea Nitrogen 26 H 9-23 mg/dL Creatinine 1.30 #H 0.550-1.02 mg/dL Glomerular Filtration Rate Calc 47 >90 mL/min BUN/Creatinine Ratio 20.0 10.0-20.0 Serum Glucose 99 74-106 mg/dL Calcium Level 9.8 8.7-10.4 mg/dL Current Medications Medications (Trade) Dose Ordered Sig/Maryjane Route Start Time Stop Time Status Last Admin Sodium Chloride 1,000 ml @ 1,000 mls/hr Q1H ONCE IV 04/17/24 21:45 04/17/24 22:44 DC 04/17/24 22:48 Metoclopramide HCl (Reglan Injection) 10 mg ONCE ONCE IV 04/17/24 21:45 04/17/24 21:46 DC 04/17/24 22:47 Acetaminophen (Tylenol Tablet) 650 mg ONCE ONCE PO 04/17/24 21:45 04/17/24 21:46 DC 04/17/24 22:47 Hydralazine HCl (Apresoline Injection) 20 mg ONCE ONCE IV 04/17/24 23:15 04/17/24 23:16 DC 04/17/24 23:28 Sodium Chloride 1,000 ml @ 75 mls/hr [id number] IV 04/18/24 00:00 04/18/24 13:19 04/18/24 00:00 Acetaminophen/ Hydrocodone Bitart (Pitman 5/325MG Tab) 1 tab Q4HP PRN PO 04/18/24 00:00 04/18/24 03:05 [place] [address] Ph: [phone] DIAGNOSTIC IMAGING Diagnostic Imaging Report : [id number] Signed PATIENT: JACE HUANG ACCT: [id number] UNIT: [id number] : 1965 LOC: ER ROOM / BED: / AGE / SEX: 59 / F ADM STATUS: REG ER SERVICE 37 ORDERING PHYSICIAN: RAY CONROY MD PROCEDURE(s): CXRP - CHEST PORTABLE REASON: migraine, htn ORDER NUMBER(s): [id number], ACCESSION NUMBER(s): [id number] CHEST RADIOGRAPH Indication: migraine, htn Technique: Single frontal view of the chest was obtained Comparison: XY CHEST PORTABLE on DOS: 10/07/23, XY CHEST PORTABLE on DOS: 08/18/23, XY CHEST PORTABLE on DOS: 05/15/22 FINDINGS: Lines and Tubes: None Lungs: No focal consolidation. Pleura: No effusion. No pneumothorax. Cardiomediastinal contours: Unremarkable Bones: No acute osseous abnormality. IMPRESSION: 1. No acute cardiopulmonary disease. ATED BY: PHILLY GRANDE Jr., DO DICTATED DATE/TIME: 04/17/242258 SIGNED BY: PHILLY GRANDE Jr., DO SIGNED DATE/TIME: 04/17/242258 CC: [address] [address] Ph: [phone] DIAGNOSTIC IMAGING Diagnostic Imaging Report : [id number] Signed PATIENT: JACE HUANG ACCT: [id number] UNIT: [id number] : 1965 LOC: ER ROOM / BED: / AGE / SEX: 59 / F ADM STATUS: REG ER SERVICE 37 ORDERING PHYSICIAN: RAY CONROY MD PROCEDURE(s): HWOCT - HEAD WITHOUT CONTRAST REASON: migraine, htn ORDER NUMBER(s): [id number], ACCESSION NUMBER(s): [id number] EXAM: CT HEAD WITHOUT CONTRAST INDICATION: migraine, htn TECHNIQUE: CT of the head without intravenous contrast. Radiation Dose Information: CT Dose: CTDI volume is 51.38 mGy. Dose-length product is 823.74 mGy*cm The dose indicators for CT are the volume Computed Tomography (CT) Dose Index (CTDIvol) and the Dose Length Product (DLP), and are measured in units of mGy and mGy-cm, respectively. These indicators are not patient dose, but values generated from the CT scanner acquisition factors. The report includes radiation exposure data for exposures received during this examination. COMPARISON: CT HEAD WITHOUT CONTRAST on DOS: 09/10/23 FINDINGS: There is no evidence of acute intracranial hemorrhage, extra-axial collection, mass effect, midline shift, herniation or hydrocephalus. The ventricles, sulci and cisterns are age appropriate. The houston-white differentiation is intact. Patchy periventricular and subcortical white matter hypoattenuation is nonspecific but may be related to small vessel ischemic disease. The visualized paranasal sinuses and mastoid air cells are clear. The surrounding soft tissues and osseous structures are unremarkable. IMPRESSION: 1. No acute intracranial hemorrhage 2. No CT findings of territorial ischemia. 3. No CT findings of intracranial mass or mass lesions. 4. Paranasal sinuses and mastoids appear normal. ATED BY: PHILLY GRANDE Jr., DO DICTATED DATE/TIME: 04/17/242258 SIGNED BY: PHILLY GRANDE Jr., DO SIGNED DATE/TIME: 04/17/242258 CC: Time of 1ST Reevaluation: 22:16 Reevaluation 1ST: Unchanged Patient Education/Counseling: Diagnosis, Treatment, Prognosis Family Education/Counseling: Diagnosis, Treatment, Prognosis Additional Information The following tests were ordered, and results were reviewed by me: BMP, CBC, TROP -x3, XY CHEST, CT HEAD WITHOUT CONTRAST, EKG Additional Information was gathered from interviewing the following independent historians: EMS, I reviewed and agreed with the following test results read by other providers: XY CHEST, CT HEAD WITHOUT CONTRAST, I discussed treatment and results with medical personnel and: PATIENT, Departure 1 Departure Time of Disposition: 05:39 (Patient presented with hypertension and symptoms concerning for hypertensive emergency. Patient is receiving iv blood pressure medications requiring intensive monitoring. Data: 1. I ordered and reviewed the result of at least 3 labs including a CBC, BMP, and Urinalysis. 2. I independently interpreted the following tests: CT Brain: Which appears benign. EKG which is Normal Sinus RhythmRisk:This patient has a high risk of morbidity due to further diagnostic testing or treatment and may suffer from an acute cardiac disorder. Workup reveals hypertensive emergency and patient should be admitted for further workup. and possible expert consultation. ) Impression: Primary Impression: Hypertensive emergency Additional Impressions: Acute chest pain Migraine Qualified Codes: G43.119 - Migraine with aura, intractable, without status migrainosus Disposition: ADMITTED INPATIENT Admit to: Med Surg Condition: Serious Critical Care Note Critical Care Time?: Yes Critical care comment: Hypertensive emergency Authorized and Performed by: Ray Conroy MD Total critical care time: Approximately 43 minutes Due to a high probability of clinically significant, life threatening deterioration, the patient required my highest level of preparedness to intervene emergently and I personally spent this critical care time directly and personally managing the patient. This critical care time included obtaining a history; examining the patient; pulse oximetry; ordering and review of studies; arranging urgent treatment with development of a management plan; evaluation of patient's response to treatment; frequent reassessment; and, discussions with other providers. This critical care time was performed to assess and manage the high probability of imminent, life-threatening deterioration that could result in multi-organ failure. It was exclusive of separately billable procedures and treating other patients and teaching time. Please see my other sections and the rest of the note for further information on patient assessment and treatment. Stability Stability form required: No I personally scribed for RAY CONROY MD ([email or web address]) on 04/17/24 at 22:09. Electronically submitted by Sharron Walker ([email or web address]). I personally scribed for RAY CONROY MD ([email or web address]) on 04/17/24 at 22:21. Electronically submitted by Sharron Walker ([email or web address]). I personally scribed for RAY CONROY MD ([email or web address]) on 04/17/24 at 23:32. Electronically submitted by Sharron Walker ([email or web address]). RAY CONROY MD Apr 17, 2024 22:09
[2024-04-17 22:11] LABS: Chloride 105 mmol/L (98-107); Potassium 4.3 mmol/L (3.5-5.1); Sodium 139 mmol/L (136-145)
[2024-04-17 22:12] LABS: Anion Gap 7 (5-15); Calcium 9.8 mg/dL (8.7-10.4); Carbon Dioxide 27 mmol/L (20-31)
[2024-04-17 22:17] LABS: Glucose 99 mg/dL (74-106)
[2024-04-17 22:18] LABS: Blood Urea Nitrogen 26 mg/dL (9-23)
[2024-04-17] MEDS: METOCLOPRAMIDE HCL 5MG/ml INJ 2ml VIAL IV ONE (22:47)
[2024-04-17] MEDS: ACETAMINOPHEN 325 MG TAB PO ONE (22:47)
[2024-04-17] MEDS: SODIUM CHLORIDE 0.9% 1,000 ML IV ONE (22:48)
--- NOTE | 2024-04-17 23:02 | DVH ---
CHEST RADIOGRAPH Indication: migraine, htn Technique: Single frontal view of the chest was obtained Comparison: XY CHEST PORTABLE on DOS: 10/07/23, XY CHEST PORTABLE on DOS: 08/18/23, XY CHEST PORTABLE on DOS: 05/15/22 FINDINGS: Lines and Tubes: None Lungs: No focal consolidation. Pleura: No effusion. No pneumothorax. Cardiomediastinal contours: Unremarkable Bones: No acute osseous abnormality. IMPRESSION: 1. No acute cardiopulmonary disease.
--- NOTE | 2024-04-17 23:02 | DVH ---
EXAM: CT HEAD WITHOUT CONTRAST INDICATION: migraine, htn TECHNIQUE: CT of the head without intravenous contrast. Radiation Dose Information: CT Dose: CTDI volume is 51.38 mGy. Dose-length product is 823.74 mGy*cm The dose indicators for CT are the volume Computed Tomography (CT) Dose Index (CTDIvol) and the Dose Length Product (DLP), and are measured in units of mGy and mGy-cm, respectively. These indicators are not patient dose, but values generated from the CT scanner acquisition factors. The report includes radiation exposure data for exposures received during this examination. COMPARISON: CT HEAD WITHOUT CONTRAST on DOS: 09/10/23 FINDINGS: There is no evidence of acute intracranial hemorrhage, extra-axial collection, mass effect, midline s hift, herniation or hydrocephalus. The ventricles, sulci and cisterns are age appropriate. The houston-white differentiation is intact. Patchy periventricular and subcortical white matter hypoattenuation is nonspecific but may be related to small vessel ischemic disease. The visualized paranasal sinuses and mastoid air cells are clear. The surrounding soft tissues and osseous structures are unremarkable. IMPRESSION: 1. No acute intracranial hemorrhage 2. No CT findings of territorial ischemia. 3. No CT findings of intracranial mass or mass lesions. 4. Paranasal sinuses and mastoids appear normal.
[2024-04-17] MEDS: hydrALAZINE HCL 20 MG/ML VL IV ONE (23:28)
[2024-04-18] MEDS ORDERED: NITROGLYCERIN 0.4 MG SL TAB SL PRN
[2024-04-18] MEDS ORDERED: ACETAMINOPHEN 325 MG TAB PO PRN
[2024-04-18] MEDS ORDERED: LABETALOL HCL 20 MG/4 ML VL IV PRN
[2024-04-18] MEDS: SODIUM CHLORIDE 0.9% 1,000 ML IV SCH
[2024-04-18] MEDS ORDERED: DOCUSATE SOD 100 MG CAP PO PRN
[2024-04-18] MEDS: diphenhdrAMINE HCL 50 MG/1 ML VL IV ONE (01:25)
[2024-04-18] MEDS: FAMOTIDINE (10MG/ML) 2ML VL IV ONE (01:25)
[2024-04-18] MEDS: HYDROcodone-ACET 5/325MG TAB PO PRN (03:05)
--- NOTE | 2024-04-18 04:21 | DVHHP2 ---
MARGARITA VICENTE AIRCRAFT MAINTENANCE MANAGER 04/18/24 0421: History of Present Illness Reason for Visit: Blurred vision, headache History of Present Illness 59-year-old female with past medical history of hypertension, anxiety presents with complaints of headache x4 days. Also endorses blurred vision, intermittent chest pain with shortness of breath. Patient was seen on Tuesday for similar complaints and chose to go home. On arrival to the emergency department lubna moscoso's blood pressure was 219/123. Patient denies any new stressors. States she takes her regular medications as prescribed. Patient endorses her roughener is Dr. Davila. At this time there are no complaints of fevers, chills, palpitations, leg swelling. Cardiovascular: HTN Psych: Anxiety Smoke: No ALCOHOL: none Drugs: None Lives: with Family Review of Systems Constitutional: No: Fever, Chills, Sweats, Weakness, Malaise, Other Eyes: No: Pain, Conjunctivae inflammation, Eyelid inflammation, Other, Redness ENT: No: Ear pain, Ear discharge, Nose pain, Nose discharge, Nose congestion, Mouth pain, Mouth swelling, Throat pain, Throat swelling, Other Respiratory: Shortness of breath; No: Cough, Dry, SOB with excertion, Wheezing, Hemoptysis, Pleuritic Pain, Sputum, Wheezing, Other Cardiovascular: Chest Pain; No: Palpitations, Orthopnea, Paroxysmal Noc. Dyspnea, Edema, Lt Headedness, Other Gastrointestinal: No: Nausea, Vomiting, Abdominal Pain, Diarrhea, Constipation, Melena, Hematochezia, Other Neurological: Other (Headache with blurred vision) Allergies: Coded Allergies: Tetracycline (Verified Allergy, Unknown, ADVERSE REACTION, 10/09/18) RASH Medications Current Medications Medications Dose Ordered Sig/Maryjane Route Start Time Stop Time Status Last Admin Dose Admin Sodium Chloride 1,000 ml @ 75 mls/hr [id number] IV 04/18/24 00:00 04/18/24 13:19 04/18/24 00:00 75 MLS/HR Docusate Sodium 100 mg BIDPRN PRN PO 04/18/24 00:00 Acetaminophen 650 mg Q6HP PRN PO 04/18/24 00:00 Acetaminophen/ Hydrocodone Bitart 1 tab Q4HP PRN PO 04/18/24 00:00 04/18/24 03:05 1 TAB Ondansetron HCl 4 mg Q4HP PRN IV 04/18/24 00:00 Enoxaparin Sodium 40 mg DAILY SC 04/18/24 10:00 Nitroglycerin 0.4 mg Q5MINP PRN SL 04/18/24 00:00 Morphine Sulfate 2 mg Q30M PRN IV 04/18/24 00:00 Aspirin 81 mg DAILY PO 04/18/24 10:00 Atorvastatin Calcium 40 mg DAILY PO 04/18/24 10:00 Labetalol HCl 10 mg Q4HPRN PRN IV 04/18/24 00:00 Verapamil HCl 20 mg BID PO 04/18/24 10:00 Exam Vital Signs Vital Signs Date Time Temp Pulse Resp B/P (MAP) Pulse Ox O2 Delivery O2 Flow Rate FiO2 04/18/24 03:34 79 14 116/67 (83) 97 04/17/24 23:10 98.2 98.2 General Appearance: Alert, Oriented X3, Cooperative, moderate distress HEENT: Atraumatic, PERRLA Respiratory: Clear to auscultation, Normal air movement Cardiovascular: Regular rate, Normal S1, Normal S2 Abdominal: Normal bowel sounds, Soft, No tenderness Extremities: No clubbing, No cyanosis, No edema Skin: No rashes, No breakdown Neuro: Normal speech, Strength at 5/5 X4 ext, Cranial nerves 3-12 NL Psych/Mental Status: Mental status NL, Mood NL Labs/Xrays Labs Test 04/18/24 00:40 04/17/24 21:46 Range/Units Troponin I High Sensitivity 7 </=34 ng/L White Blood Count 7.4 4.4-10.8 10^3/uL Red Blood Count 4.75 4.0-5.20 10^6/uL Hemoglobin 14.4 12.2-16.2 g/dL Hematocrit 41.6 36.0-46.0 % Mean Corpuscular Volume 87.6 80.0-100.0 fL Mean Corpuscular Hemoglobin 30.3 28.0-32.0 pg Mean Corpuscular Hemoglobin Concent 34.5 32.0-36.0 g/dL Red Cell Distribution Width 14.3 11.8-14.3 % Platelet Count 243 140-450 10^3/uL Mean Platelet Volume 7.1 6.9-10.8 fL Neutrophils (%) (Auto) 59.1 37.0-80.0 % Lymphocytes (%) (Auto) 27.6 10.0-50.0 % Monocytes (%) (Auto) 10.8 0.0-12.0 % Eosinophils (%) (Auto) 1.0 0.0-7.0 % Basophils (%) (Auto) 1.5 0.0-2.0 % Neutrophils # (Auto) 4.4 1.6-8.6 10 ^3/uL Lymphocytes # (Auto) 2.0 0.4-5.4 10 ^3/uL Monocytes # (Auto) 0.8 0-1.3 10 ^3/uL Eosinophils # (Auto) 0.1 0-0.8 10 ^3/uL Basophils # (Auto) 0.1 0-0.2 10 ^3/uL Nucleated Red Blood Cells 0.1 % Sodium Level 139 136-145 mmol/L Potassium Level 4.3 3.5-5.1 mmol/L Chloride Level 105 98-107 mmol/L Carbon Dioxide Level 27 20-31 mmol/L Anion Gap 7 5-15 Blood Urea Nitrogen 26 H 9-23 mg/dL Creatinine 1.30 #H 0.550-1.02 mg/dL Glomerular Filtration Rate Calc 47 >90 mL/min BUN/Creatinine Ratio 20.0 10.0-20.0 Serum Glucose 99 74-106 mg/dL Calcium Level 9.8 8.7-10.4 mg/dL Assessment/Plan Assessment/Plan Stroke like symptoms (blurred vision) Uncontrolled hypertension Chest pain Plan Admit telemetry Neurology consult. MRI brain. Physical therapy evaluation. ASA, statin. Cardiology consult. Echocardiogram. Continue home medication after medication reconciliation has been completed. As needed anti-hypertensive for optimal BP management GI ppx protonix / dvt ppx lovenox Plan discussed with: Patient My Orders Orders - MARGARITA VICENTE NP Procedure Category Date Status Time Admit ADMIT 04/17/24 Transmitted 23:50 Code Status CODE 04/17/24 Transmitted 23:50 Vital Signs BEKA 04/17/24 In Process 23:50 Review Orders With BEKA 04/17/24 In Process Adm. 23:50 Encourage Activity As BEKA 04/17/24 In Process Tolerate 23:50 Consistent DIET 04/18/24 Transmitted Carb(Ccho)Diabetes Breakfast Sodium Chloride 0.9% PHA 04/18/24 In Process 00:00 Oxygen By Face Mask RT 04/17/24 Transmitted 23:50 Docusate Sodium PHA 04/18/24 In Process Capsule (Colace 00:00 Acetaminophen Tablet PHA 04/18/24 In Process (Tylenol Tablet) 00:00 Notify Of Changes BEKA 04/17/24 In Process From Base 23:50 Advance Directive BEKA 04/17/24 In Process 23:50 Echo 2d Mode Cardiac US 04/17/24 Logged DOP 23:50 Basic Metabolic Panel LAB 04/18/24 Logged 05:00 Basic Metabolic Panel LAB 04/19/24 Verified 05:00 Basic Metabolic Panel LAB 04/20/24 Verified 05:00 Basic Metabolic Panel LAB 04/21/24 Verified 05:00 Basic Metabolic Panel LAB 04/22/24 Verified 05:00 Complete Blood Count LAB 04/18/24 Logged 05:00 Complete Blood Count LAB 04/19/24 Verified 05:00 Complete Blood Count LAB 04/20/24 Verified 05:00 Complete Blood Count LAB 04/21/24 Verified 05:00 Complete Blood Count LAB 04/22/24 Verified 05:00 Patient Condition ORDERS 04/17/24 Transmitted 23:50 Allergies BEKA 04/17/24 In Process 23:50 Hydrocodone-Acet PHA 04/18/24 In Process 5/325mg Tab (Mason 00:00 Ondansetron Hcl PHA 04/18/24 In Process (Zofran) 00:00 Enoxaparin Sodium PHA 04/18/24 In Process (Lovenox) 10:00 Sequential BEKA 04/17/24 In Process Compression Device Nitroglycerin PHA 04/18/24 In Process Sublingual (Ntrostat 00:00 Morphine Sulfate PHA 04/18/24 In Process Injection 00:00 Stat Ekg For Chest BEKA 04/17/24 In Process Pain 23:50 Notify Md Of Changes BEKA 04/17/24 In Process From Base 23:50 Wave Guide Assembler For BEKA 04/17/24 In Process 24 Hours 23:50 Emergency Dysrhythmia BEKA 04/17/24 In Process Protocol 23:50 Rhythm Strips Once BEKA 04/17/24 In Process Every Shift 23:50 Oxygen By Nasal RT 04/17/24 Transmitted Cannula 23:50 * Cardiology Consult CONS 04/17/24 Transmitted 23:50 * Neurology Consult CONS 04/17/24 Transmitted 23:50 Brain Head Wo Contrast MRI 04/17/24 Logged 23:50 Aspirin Tablet PHA 04/18/24 In Process 10:00 Atorvastatin (Lipitor) PHA 04/18/24 In Process 10:00 Pt Request For Service PT 04/17/24 Logged 23:50 Labetalol Hcl PHA 04/18/24 In Process (Labetalol Hcl) 00:00 Verapamil Hcl (Calan) PHA 04/18/24 In Process 10:00 Date of Service: Apr 18, 2024 Billing Provider: JESUS ALBERTO LAUREN MD Common Visit Codes: NOT BILLABLE JESUS ALBERTO LAUREN MD 04/18/24 1144: Review of Systems Allergies: Coded Allergies: Tetracycline (Verified Allergy, Unknown, ADVERSE REACTION, 10/09/18) RASH Assessment/Plan Assessment/Plan Patient's chart is reviewed and discussed with nurse practitioner. I agree with nurse practitioner's evaluation, documentation, assessment and care plan as outlined. Plan discussed with: Other MARGARITA VICENTE NP Apr 18, 2024 04:21 JESUS ALBERTO LAUREN MD Apr 18, 2024 11:44
[2024-04-18] MEDS: ONDANSETRON HCL 4 MG/2 ML VIAL IV PRN (05:59)
[2024-04-18] MEDS: MORPHINE SULFATE INJ 2 MG/ml SYRG IV PRN (06:00)
[2024-04-18 07:04] LABS: Basophils # (auto) 0 10 ^3/uL (0-0.2); Basophils % (auto) 0.4 % (0.0-2.0); Eosinophils # (auto) 0.1 10 ^3/uL (0-0.8); Eosinophils % (auto) 1.7 % (0.0-7.0); Hematocrit 38.3 % (36.0-46.0); Hemoglobin 13.2 g/dL (12.2-16.2); Lymphocytes # (auto) 1.5 10 ^3/uL (0.4-5.4); Lymphocytes % (auto) 35.3 % (10.0-50.0); Mean Corpuscular Hemoglobin 30.4 pg (28.0-32.0); Mean Corpuscular Hgb Conc. 34.3 g/dL (32.0-36.0); Mean Corpuscular Volume 88.5 fL (80.0-100.0); Monocytes # (auto) 0.5 10 ^3/uL (0-1.3); Monocytes % (auto) 10.6 % (0.0-12.0); Neutrophils # (auto) 2.2 10 ^3/uL (1.6-8.6); Platelet Count (auto) 206 10^3/uL (140-450); Red Blood Cells 4.33 10^6/uL (4.0-5.20); Red Cell Distribution Width 14.7 % (11.8-14.3); White Blood Cell 4.3 10^3/uL (4.4-10.8)
[2024-04-18 07:10] LABS: Anion Gap 8 (5-15); Carbon Dioxide 26 mmol/L (20-31); Potassium 4.6 mmol/L (3.5-5.1); Sodium 142 mmol/L (136-145)
[2024-04-18 07:11] LABS: Calcium 9.4 mg/dL (8.7-10.4)
[2024-04-18 07:15] LABS: Chloride 108 mmol/L (98-107)
[2024-04-18 07:16] LABS: BUN/Creatinine Ratio 22.7 (10.0-20.0); Blood Urea Nitrogen 20 mg/dL (9-23); Glucose 87 mg/dL (74-106)
[2024-04-18 07:53] VITALS: PULSE 76; RESP 15
[2024-04-18 08:00] VITALS: TEMP 97.6
--- NOTE | 2024-04-18 08:49 | DVH ---
MRI BRAIN HEAD WO CONTRAST INDICATION: cva r/o EXAM DATE: 04/18/2024 08:11 AM COMPARISON: None PROCEDURE: Using a 1.5 Melissa scanner, multisequence multiplanar imaging of the brain was obtained. FINDINGS: The brainshows normal morphology and signal characteristics. No abnormal T2 hyperintensity, diffusion restriction, or susceptibility hypointensity is present. The ventricles are normal in size . The midline structures are intact. The major intracranial flow voids are present. The aerated space s are normal. The orbital contents and extracranial soft tissues appear normal. IMPRESSION: No acute abnormal MRI findings of the brain.
[2024-04-18] MEDS: KETOROLAC TROMETH 30 MG/ML 1ML VIAL IV ONE (09:20)
--- NOTE | 2024-04-18 10:02 | ECG ---
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
[2024-04-18] MEDS: ATORVASTATIN 20 MG TAB PO SCH (11:27)
[2024-04-18] MEDS: ASPirin 81 mg TAB PO SCH (11:27)
[2024-04-18] MEDS: ENOXAPARIN SOD 40 MG/0.4 ML SYRINGE SC SCH (11:28)
[2024-04-18] MEDS: VERAPAMIL HCL 40 MG TAB PO SCH (11:49)
--- NOTE | 2024-04-18 11:50 | DVHINCON2 ---
Date of service: Apr 18, 2024 History of Present Illness 59-year-old female with past medical history of hypertension, anxiety presents with complaints of headache x4 days. Also endorses blurred vision, intermittent chest pain with shortness of breath. Patient was seen on Tuesday for similar complaints and chose to go home. On arrival to the emergency department patient's blood pressure was 219/123. Patient denies any new stressors. States she takes her regular medications as prescribed. 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 At this time there are no complaints of fevers, chills, palpitations, leg swelling. Cardiovascular: HTN Psych: Anxiety Smoke: No ALCOHOL: none Drugs: None Lives: with Family Past Medical History reviewed Family History: Cardiovascular disease GRANDPA FH: cancer FH: lung cancer G8 MOTHER Pleural effusion G8 MOTHER, Onset:Unknown Rectal cancer G8 FATHER, , Cause: Rectal cancer, Onset:Unknown Thyroid disease G8 SISTER, Onset:Unknown Allergies: Coded Allergies: Tetracycline (Verified Allergy, Unknown, ADVERSE REACTION, 10/09/18) RASH Home Meds Active Scripts Verapamil HCl (Verapamil Hydrochloride) 40 Mg Tab, 20 MG PO BID, #30 TAB Take half a tablet 20 mg by mouth twice a day. Hold if your systolic blood pressure is less than 100. Prov:JESUS ALBERTO LAUREN MD 10/10/23 Pantoprazole Sodium Sesquihydr (Pantoprazole Sodium) 40 Mg Tab, 40 MG PO DAILY, #30 TAB Prov:JESUS ALBERTO LAUREN MD 10/09/23 Ondansetron Odt 4MG Tab (ZOFRAN PO) 4 Mg Tb, 4 MG PO Q6HPRN PRN, #10 TAB ODT TAB-DISSOLVE IN MOUTH, THEN SWALLOW Prov:JESUS ALBERTO LAUREN MD 10/09/23 Reported Medications Olmesartan Medoxomil (Benicar) 40 Mg Tab, 1 TAB PO DAILY, #30 TAB 5 Refills 10/08/23 Current Medications Current Medications Medications (Trade) Dose Ordered Sig/Maryjane Route PRN Reason Start Time Stop Time Status Last Admin Sodium Chloride 1,000 ml @ 75 mls/hr [id number] IV 04/18/24 00:00 04/18/24 13:19 04/18/24 00:00 Docusate Sodium (Colace Capsule) 100 mg BIDPRN PRN PO FOR CONSTIPATION 04/18/24 00:00 Acetaminophen (Tylenol Tablet) 650 mg Q6HP PRN PO PAIN SCALE 1-3 OR TEMP>100.4 04/18/24 00:00 Acetaminophen/ Hydrocodone Bitart (Savanna 5/325MG Tab) 1 tab Q4HP PRN PO MODERATE PAIN (4-6 PAIN SCALE) 04/18/24 00:00 04/18/24 03:05 Ondansetron HCl (Zofran) 4 mg Q4HP PRN IV NAUSEA / VOMITING 04/18/24 00:00 04/18/24 05:59 Enoxaparin Sodium (Lovenox) 40 mg DAILY SC 04/18/24 10:00 04/18/24 11:28 Nitroglycerin (Ntrostat Sublingual) 0.4 mg Q5MINP PRN SL FOR CHEST PAIN 04/18/24 00:00 Morphine Sulfate 2 mg Q30M PRN IV FOR CHEST PAIN 04/18/24 00:00 04/18/24 11:20 Aspirin 81 mg DAILY PO 04/18/24 10:00 04/18/24 11:27 Atorvastatin Calcium (Lipitor) 40 mg DAILY PO 04/18/24 10:00 04/18/24 11:27 Labetalol HCl (Labetalol HCl) 10 mg Q4HPRN PRN IV SBP>180 04/18/24 00:00 Verapamil HCl (Calan) 20 mg BID PO 04/18/24 10:00 Review of Systems 10 pt ros otherwise negative Vital Signs Vital Signs Date Time Temp Pulse Resp B/P (MAP) Pulse Ox O2 Delivery O2 Flow Rate FiO2 04/18/24 11:20 73 16 123/76 04/18/24 10:00 96 04/18/24 08:00 97.6 97.6 04/18/24 07:53 Room Air* 0 21 Physical Exam nad s1 s2 rrr ctab soft nt/nd no edema Labs/Diagnostic Data Labs Test 04/18/24 05:09 04/18/24 00:40 Range/Units White Blood Count 4.3 #L 4.4-10.8 10^3/uL Red Blood Count 4.33 4.0-5.20 10^6/uL Hemoglobin 13.2 12.2-16.2 g/dL Hematocrit 38.3 36.0-46.0 % Mean Corpuscular Volume 88.5 80.0-100.0 fL Mean Corpuscular Hemoglobin 30.4 28.0-32.0 pg Mean Corpuscular Hemoglobin Concent 34.3 32.0-36.0 g/dL Red Cell Distribution Width 14.7 H 11.8-14.3 % Platelet Count 206 140-450 10^3/uL Mean Platelet Volume 7.0 6.9-10.8 fL Neutrophils (%) (Auto) 52.0 37.0-80.0 % Lymphocytes (%) (Auto) 35.3 10.0-50.0 % Monocytes (%) (Auto) 10.6 0.0-12.0 % Eosinophils (%) (Auto) 1.7 0.0-7.0 % Basophils (%) (Auto) 0.4 0.0-2.0 % Neutrophils # (Auto) 2.2 1.6-8.6 10 ^3/uL Lymphocytes # (Auto) 1.5 0.4-5.4 10 ^3/uL Monocytes # (Auto) 0.5 0-1.3 10 ^3/uL Eosinophils # (Auto) 0.1 0-0.8 10 ^3/uL Basophils # (Auto) 0 0-0.2 10 ^3/uL Nucleated Red Blood Cells 0.0 % Sodium Level 142 136-145 mmol/L Potassium Level 4.6 3.5-5.1 mmol/L Chloride Level 108 H 98-107 mmol/L Carbon Dioxide Level 26 20-31 mmol/L Anion Gap 8 5-15 Blood Urea Nitrogen 20 9-23 mg/dL Creatinine 0.88 # 0.550-1.02 mg/dL Glomerular Filtration Rate Calc 75 >90 mL/min BUN/Creatinine Ratio 22.7 H 10.0-20.0 Serum Glucose 87 74-106 mg/dL Calcium Level 9.4 8.7-10.4 mg/dL Troponin I High Sensitivity 7 </=34 ng/L Assessment severe HTN headache Plan/Recommendation cont her low dose CCB add losartan for afterload reduction headache medication as per hospitalist outpt fu after dc Plan discussed with: Patient AIMEE ALANIS MD Apr 18, 2024 11:50
[2024-04-18] MEDS ORDERED: OLME40TA78 PO (14:06)
--- NOTE | 2024-04-18 14:09 | DVHDS2 ---
Discharge Summary Date of Admission Apr 18, 2024 at 00:03 Date of Discharge: Apr 18, 2024 Labs/Diagnostic Data: Laboratory Results Test 04/18/24 05:09 04/18/24 00:40 White Blood Count 4.3 10^3/uL (4.4-10.8) Red Blood Count 4.33 10^6/uL (4.0-5.20) Hemoglobin 13.2 g/dL (12.2-16.2) Hematocrit 38.3 % (36.0-46.0) Mean Corpuscular Volume 88.5 fL (80.0-100.0) Mean Corpuscular Hemoglobin 30.4 pg (28.0-32.0) Mean Corpuscular Hemoglobin Concent 34.3 g/dL (32.0-36.0) Red Cell Distribution Width 14.7 % (11.8-14.3) Platelet Count 206 10^3/uL (140-450) Mean Platelet Volume 7.0 fL (6.9-10.8) Neutrophils (%) (Auto) 52.0 % (37.0-80.0) Lymphocytes (%) (Auto) 35.3 % (10.0-50.0) Monocytes (%) (Auto) 10.6 % (0.0-12.0) Eosinophils (%) (Auto) 1.7 % (0.0-7.0) Basophils (%) (Auto) 0.4 % (0.0-2.0) Neutrophils # (Auto) 2.2 10 ^3/uL (1.6-8.6) Lymphocytes # (Auto) 1.5 10 ^3/uL (0.4-5.4) Monocytes # (Auto) 0.5 10 ^3/uL (0-1.3) Eosinophils # (Auto) 0.1 10 ^3/uL (0-0.8) Basophils # (Auto) 0 10 ^3/uL (0-0.2) Nucleated Red Blood Cells 0.0 % Sodium Level 142 mmol/L (136-145) Potassium Level 4.6 mmol/L (3.5-5.1) Chloride Level 108 mmol/L (98-107) Carbon Dioxide Level 26 mmol/L (20-31) Anion Gap 8 (5-15) Blood Urea Nitrogen 20 mg/dL (9-23) Creatinine 0.88 mg/dL (0.550-1.02) Glomerular Filtration Rate Calc 75 mL/min (>90) BUN/Creatinine Ratio 22.7 (10.0-20.0) Serum Glucose 87 mg/dL (74-106) Calcium Level 9.4 mg/dL (8.7-10.4) Troponin I High Sensitivity 7 ng/L (</=34) Other Laboratory Tests 04/18/24 05:09 Final Diagnosis/Problems List Hypertensive urgency, headaches, malignant hypertension Discharge Disposition: Home Discharge Instruct/Medications Diet: Consistent carbohydrate, Cardiac 2g Na,low cholest Activity: No Restrictions, As Tolerated Follow Up/Referral: Primary care physician next week for blood pressure management and neurologist Dr.Sonia Victoria for headache management Medications: Take Benicar 40 mg by mouth daily in the evening for your blood pressure. Take verapamil 10 mg by mouth twice a day for your chronic headaches. Discharge Statement: "Patient was advised to return to the ER or call 911 if any headaches, dizziness, shortness of breath, chest pain, abdominal pain, bleeding, fevers, or worsening of medical condition. Patient was counseled about treatment plan, medications, possible side effects, patientverbalized understanding. All questions were answered to the best of my ability. This discharge took greater then 30 minutes in planning, reviewing documentation, counseling the patient, and discussing with other team members." ASSESSMENT ASSESSMENT Assessment Hypertensive urgency, headaches, malignant hypertension JESUS ALBERTO LAUREN MD Apr 18, 2024 14:09
[2024-04-18 15:25] VITALS: BP 142/95; PULSE 89; RESP 21; O2SAT 95
--- NOTE | 2024-04-18 17:17 | DVHSR ---
APPROVED REPORT EXAM: Two-dimensional and M-mode echocardiogram with Doppler and color Doppler. Blood Pressure: 117/80 mmHg INDICATION uncontrolled htn RISK FACTORS Height: 5'6, Weight: 125 DIMENSIONS LVDd4.2 (3.8-5.7cm)LA (2D)4.1 (1.9-4.0cm)Aortic Root3.2 (2.0-3.7cm) LVDs2.7 (2.5-4.0cm)LA (MM) (1.9-4.0cm)Aortic Cusp Exc1.5 (1.5-2.0cm) EF (%) 60.0 (55-70%)Rt. Atrium4.1 (1.9-4.0cm)Asc. Aorta3.1 cm IVSd0.8 (0.7-1.1cm)RV (D)3.8 (1.8-2.4cm) PWd1.2 (0.7-1.1cm) Mitral Valve MitralMitral Stenosis E wave0.78m/sMV Mean GR.mmHg A wave0.88m/sMV Peak GR.86mmHg E/A ratio0.92D MVAcm2 DECEL [id number] 1/2 Timems Aortic Valve Aortic ValveAortic Stenosis V11.00m/Rory Mean GR.4mmHg V21.36m/Rory Peak GR.7mmHg LVOT Diameter2.0 (1.8-2.4cm)Doppler AVA2.31cm2 Pulmonic Valve V20.71m/s Tricuspid Valve TR Velocity2.66m/s [id number] Conclusion lvef 65% mild LVH mild mitral regurg
== END 2024-04-18 15:25 | disposition home or self-care (01) | DRG 305 ==
LOC: EDBD 21:17 → ER 21:17 → OVERFLOW 04-18 00:03
PROVIDERS: ADMIT Nurse Practitioner Family; ATTEND Nurse Practitioner Family
DX: I16.0 Hypertensive urgency (principal); I10 Essential (primary) hypertension; F17.210 Nicotine dependence, cigarettes, uncomplicated; F41.9 Anxiety disorder, unspecified; Z80.0 Family history of malignant neoplasm of digestive organs; Z80.1 Family history of malignant neoplasm of trachea, bronchus and lung; Z82.49 Family history of ischemic heart disease and other diseases of the circulatory system; Z88.1 Allergy status to other antibiotic agents; Z79.899 Other long term (current) drug therapy
CPT/HCPCS: 36415; 70450; 70551; 71045; 80048; 84484; 85025; 93005; 93306; 96361; 96374; 96375; 97163; 99291; G0378; J1885; J2405; J3490

== ENCOUNTER 2024-08-31 10:40 | Inpatient (IN) | payer OTHER ==
[~2024-08-31] VITALS: Ht 165.1 cm; Wt 54.4 kg
--- NOTE | 2024-08-31 10:57 | ED.PDOC ---
HPI Comments HPI: Poor Historian. 59-year-old female brought in by ambulance from a hair salon for evaluation of midsternal chest pressure tightness nonradiating. Patient has been having shortness of breath since last night. Patient denies any alleviating or precipitating factors. Vital signs per EMS were stable prior to arrival. Patient did not receive any medications or interventions by EMS. Patient states similar episodes happened in the past. Patient took her hypertension medication today. Past Medical History: Hypertension Past Surgical History: Spinal surgery REVIEW OF SYSTEMS: CONSTITUTIONAL: Denies acute: fever, diaphoresis, chills, generalized weakness. HEAD: Denies acute: headache, photophobia Eyes: Denies acute: Double vision, vision loss, eye pain, eye discharge. EARS: Denies acute: tinnitus, hearing loss, ear discharge, ear pain, THROAT: Denies acute: sore throat, swelling, difficulty swallowing , pain with swallowing, change in voice. NECK: Denies acute: neck pain, neck swelling, stiff neck. HEART: Denies acute : , palpitations, LUNGS: Denies acute: wheezing, cough, hemoptysis ABDOMEN: Denies acute: abdominal pain, Nausea, Vomiting, diarrhea, melena , hematemesis, hematochezia SKIN: Denies acute: rash, redness, lesions, itchiness. EXTREMITIES: Denies acute: calf pain, numbness, tingling, weakness, denies pain in extremity. Denies acute: Low back pain. Neuro: Denies acute: focal neurological deficit, motor or sensory focal neurological deficit, tremors, seizure like activity, confusion, dizziness, change in mental status, loss of bowel or bladder function, cauda equina like symptoms. : Denies acute: dysuria, hematuria, flank pain, increase in urinary frequency. PSYCH: Denies acute: hallucination, suicidal ideation, homicidal ideation. FEMALE: Denies acute: abnormal vaginal bleeding, foul odor, unusual discharge. PHYSICAL EXAM: General: ---[id number]-----acute distress, awake and alert. Head: normocephalic, atraumatic. Neck: supple, trachea is midline, no swelling. Throat: Normal phonation. Eyes:, no erythema, no purulent discharge, no proptosis, no icterus. Heart: regular rate, regular rhythm, no significant murmur appreciated. Lungs: no apparent respiratory distress, Able to speak in full sentences. No wheezing, no rhonchi, no crackles. No stridors Clear to auscultation bilaterally. Abdomen: non tender to palpation, non distended, soft, no guarding, no rebound, + bowel sounds. Neuro: Awake, Alert, oriented to name, self, situation, follows commands GCS=15. Speech is normal. Skin: no petechia, no purpura, no cyanosis, non-pale, not jaundice. Lower extremities: --no - Pitting edema no deformity, no focal swelling, no calf TTP. Makes eye contact. moves all four extremities. Face: no apparent facial droop. Ambulating in the ED independently. ED COURSE: DISCLAIMER: This medical document was created using an electronic medical record system with voice recognition software and computerized dictation system. Although this document has been carefully reviewed, there might still be some phonetic and typographical errors. Occasional wrong-word or "sound-alike" substitutions may have occurred due to the inherent limitations of voice recognition software. These areas are purely typographical due to imperfections of the software programs and do not reflect any compromise in the patient's medical care. Please read the chart carefully and recognize, using context, where these substitutions have occurred. Time Seen by MD: 10:42 Primary Care Provider: david Reviewed Notes: Allergies Allergies: Coded Allergies: Tetracycline (Verified Allergy, Unknown, ADVERSE REACTION, 10/09/18) RASH Home Meds Active Scripts Olmesartan Medoxomil (Benicar) 40 Mg Tab, 1 TAB PO DAILY, #30 TAB Prov:JESUS ALBERTO LAUREN MD 04/18/24 Verapamil HCl (Verapamil Hydrochloride) 40 Mg Tab, 20 MG PO BID, #30 TAB Take half a tablet 20 mg by mouth twice a day. Hold if your systolic blood pressure is less than 100. Prov:JESUS ALBERTO LAUREN MD 10/10/23 Pantoprazole Sodium Sesquihydr (Pantoprazole Sodium) 40 Mg Tab, 40 MG PO DAILY, #30 TAB Prov:JESUS ALBERTO LAUREN MD 10/09/23 Ondansetron Odt 4MG Tab (ZOFRAN PO) 4 Mg Tb, 4 MG PO Q6HPRN PRN, #10 TAB ODT TAB-DISSOLVE IN MOUTH, THEN SWALLOW Prov:JESUS ALBERTO LAUREN MD 10/09/23 Reported Medications Verapamil Hcl (Verapamil Hcl Er) 120 Mg Tab, 1 TAB PO DAILY, #30 TAB 5 Refills 08/31/24 Clonidine Hydrochloride (Clonidine Hcl) 0.1 Mg Tab, 0.1 MG PO TID for 30 Days, MG 08/31/24 Hydrochlorothiazide (Hydrochlorothiazide) 12.5 Mg Cap, 1 CAP PO QAM 08/31/24 Information Source: Patient, Emergency Med Personnel Past Medical History PAST MEDICAL HISTORY: Anxiety, HTN RUNNER MAN History: No Pertinent RUNNER MAN History Family History Family History: Reviewed,noncontributory to illness, No family hx of Cancer Social History Smoker: Cigarettes, Less Than 1 Pack/Day Alcohol: Denies ETOH Use Drugs: Denies Drug Use Lives In: Home Was a procedure done? Was a procedure done?: No CP Differential Dx Differential Diagnosis: N/A Differential Diagnosis: Other (Ddx include but not limitied to gastritis, musculoskeletal pain, radiculopathy, atypical chest pain, dissection, aneurysm, ACS, unstable angina, hiatal hernia, GERD, anxiety, costochondritis, PE, pneumothroax, neoplasm, cardiac ischemia, drug abuse, anemia.) X-Ray, Labs, Meds, VS Vital Signs Date Time Temp Pulse Resp B/P (MAP) Pulse Ox O2 Delivery O2 Flow Rate FiO2 08/31/24 13:00 78 21 138/93 (108) 97 08/31/24 12:00 52 08/31/24 11:10 79 14 98 Room Air* 0 21 08/31/24 11:03 98.1 79 14 140/95 (110) 98 98.1 08/31/24 10:46 98.9 78 14 149/100 (116) 100 98.9 08/31/24 10:43 74 Lab Test 08/31/24 12:47 08/31/24 12:16 08/31/24 11:10 Range/Units Urine Color Colorless Yellow Urine Clarity Clear Clear Urine pH 6.5 5.0-9.0 Urine Specific [place] 1.009 1.001-1.035 Urine Protein Negative Negative Urine Ketones Negative Negative Urine Blood Negative Negative /uL Urine Nitrite 2+ H Negative Urine Bilirubin Negative Negative Urine Urobilinogen Normal Negative mg/dL Urine Leukocyte Esterase Negative Negative /uL Urine RBC 1 0 - 4 /hpf Urine Microscopic WBC 2 0-5 /HPF Urine Squamous Epithelial Cells Few <5 /hpf Urine Bacteria None seen None Seen /hpf Urine Glucose Normal Normal mg/dL Urine Opiates Screen Neg NEGATIVE Urine Fentanyl Screen Neg NEGATIVE Urine Barbiturates Screen Neg NEGATIVE Urine Phencyclidine Screen Neg NEGATIVE Urine Amphetamines Screen Pos NEGATIVE Urine Benzodiazepines Screen Neg NEGATIVE Urine Cocaine Screen Neg NEGATIVE Urine Cannabinoids Screen Neg NEGATIVE Troponin I High Sensitivity 3 L 4 </=34 ng/L White Blood Count 4.9 4.4-10.8 10^3/uL Red Blood Count 5.43 H 4.0-5.20 10^6/uL Hemoglobin 16.1 12.2-16.2 g/dL Hematocrit 47.6 H 36.0-46.0 % Mean Corpuscular Volume 87.8 80.0-100.0 fL Mean Corpuscular Hemoglobin 29.6 28.0-32.0 pg Mean Corpuscular Hemoglobin Concent 33.7 32.0-36.0 g/dL Red Cell Distribution Width 13.3 11.8-14.3 % Platelet Count 270 140-450 10^3/uL Mean Platelet Volume 7.6 6.9-10.8 fL Neutrophils (%) (Auto) 59.3 37.0-80.0 % Lymphocytes (%) (Auto) 31.1 10.0-50.0 % Monocytes (%) (Auto) 7.7 0.0-12.0 % Eosinophils (%) (Auto) 1.6 0.0-7.0 % Basophils (%) (Auto) 0.3 0.0-2.0 % Neutrophils # (Auto) 2.9 1.6-8.6 10 ^3/uL Lymphocytes # (Auto) 1.5 0.4-5.4 10 ^3/uL Monocytes # (Auto) 0.4 0-1.3 10 ^3/uL Eosinophils # (Auto) 0.1 0-0.8 10 ^3/uL Basophils # (Auto) 0 0-0.2 10 ^3/uL Nucleated Red Blood Cells 0.3 % Sodium Level 138 136-145 mmol/L Potassium Level 3.8 3.5-5.1 mmol/L Chloride Level 105 98-107 mmol/L Carbon Dioxide Level 25 20-31 mmol/L Anion Gap 8 5-15 Blood Urea Nitrogen 13 9-23 mg/dL Creatinine 1.03 H 0.550-1.02 mg/dL Glomerular Filtration Rate Calc 62 >90 mL/min BUN/Creatinine Ratio 12.6 10.0-20.0 Serum Glucose 95 74-106 mg/dL Hemoglobin A1c 5.9 H <5.7 % A1C Calcium Level 10.2 8.7-10.4 mg/dL Total Bilirubin 0.5 0.2-1.0 mg/dL Aspartate Amino Transferase (AST) 22 13-40 U/L Alanine Aminotransferase (ALT) 18 7-40 U/L Alkaline Phosphatase 105 46-116 U/L B-Type Natriuretic Peptide 100.88 0-100 pg/mL Total Protein 7.2 5.7-8.2 g/dL Albumin 4.6 3.2-4.8 g/dL Thyroid Stimulating Hormone (TSH) 1.87 0.55-4.78 uIU/mL Free Thyroxine (T4) Calculated 1.11 0.89-1.76 ng/dL Hepatitis B Surface Antigen Negative Negative Hepatitis C Antibody Negative Negative [place] [id number] Ph: [phone] DIAGNOSTIC IMAGING Diagnostic Imaging Report : [id number] Signed PATIENT: JACE HUANG ACCT: [id number] UNIT: [id number] : 1965 LOC: ER ROOM / BED: / AGE / SEX: 59 / F ADM STATUS: REG ER SERVICE 1051 ORDERING PHYSICIAN: ROSS SANTOS DO PROCEDURE(s): CXRP - CHEST PORTABLE REASON: cp, sob ORDER NUMBER(s): [id number], ACCESSION NUMBER(s): [id number] CHEST RADIOGRAPH Indication: cp, sob Technique: Single frontal view of the chest was obtained COMPARISON: XY CHEST PORTABLE on DOS: 04/17/24, XY CHEST PORTABLE on DOS: 10/07/23, XY CHEST PORTABLE on DOS: 08/18/23, XY CHEST PORTABLE on DOS: 05/15/22, CHEST PORTABLE on DOS: 10/28/18 FINDINGS: Lines and Tubes: None Lungs: Clear Pleura: No effusion. No pneumothorax. Cardiomediastinal contours: Unremarkable Bones: Thoracolumbar spinal fixation hardware. IMPRESSION: No acute disease. ATED BY: FRANC MAYORGA MD DICTATED DATE/TIME: 08/31/241155 SIGNED BY: FRANC MAYORGA MD SIGNED DATE/TIME: 08/31/241155 CC: Time of 1ST Reevaluation: 00:00 Reevaluation 1ST: N/A Patient Education/Counseling: Diagnosis, Treatment Family Education/Counseling: Other Comments MDM: patient presented with the above HPI.--cardiac----workup was initiated. patient was found with the above mentioned diagnosis. the following medications were ordered: please refer to order lists of meds and tests obtained by myself Dr. Santos. Patient ED course and VS have been stabilized. Patient has been reassessed in the ED and remained in a stable condition. Pertinent incidental findings were discussed with the patient and/or family. Patient/family voices understanding and is agreeable with plan. Patient has been observed in the ED adequate length of time to insure improvement/stability. Escalation of care considered: Consideration of escalation to observation or admission Patient was ADMITTED to the medicine team for further evaluation and treatment of their presentation. All the reports of any imaging studies that were ordered by myself were reviewed by myself. SEPSIS Sepsis Screen Physician Orders [employer] (08/31/24 ) Chest Portable (08/31/24 10:51) Electrocardigram (08/31/24 10:42) Electrocardigram (08/31/24 11:42) Electrocardigram (08/31/24 13:42) Vital Signs Date Time Temp Pulse Resp B/P (MAP) Pulse Ox O2 Delivery O2 Flow Rate FiO2 08/31/24 13:00 78 21 138/93 (108) 97 08/31/24 12:00 52 08/31/24 11:10 79 14 98 Room Air* 0 21 08/31/24 11:03 98.1 79 14 140/95 (110) 98 98.1 08/31/24 10:46 98.9 78 14 149/100 (116) 100 98.9 08/31/24 10:43 74 Laboratory Tests Test 08/31/24 11:10 White Blood Count 4.9 10^3/uL (4.4-10.8) Departure 1 Departure Time of Disposition: 10:56 Impression: Primary Impression: Acute chest pain Additional Impressions: Dyspnea Methamphetamine abuse Disposition: 09 ADMITTED INPATIENT Admit to: Tele Condition: Guarded Discharged With: Self Critical Care Note Critical Care Time?: No Heart Score Heart Score: Heart Score Response (Comments) Value History Moderate Suspicious 1 EKG Normal 0 Age 45-64 1 Risk Factors 1 or 2 risk factors 1 Troponin Normal limit 0 Total 3 I personally scribed for ROSS SANTOS DO ([email or web address]) on 08/31/24 at 16:58. Electronically submitted by Jeffry Gabriel [email or web address]). ROSS SANTOS DO Aug 31, 2024 10:57
[2024-08-31 11:10] VITALS: PULSE 79; RESP 14; O2SAT 98
[2024-08-31] MEDS: ASPirin-EC 325mg tab PO ONE (11:30)
[2024-08-31] MEDS: NITROGLYCERIN 0.4 MG SL TAB SL ONE (11:30)
[2024-08-31 11:37] LABS: Hematocrit 47.6 % (36.0-46.0); Hemoglobin 16.1 g/dL (12.2-16.2); Mean Corpuscular Hemoglobin 29.6 pg (28.0-32.0); Mean Corpuscular Volume 87.8 fL (80.0-100.0); Nucleated Red Blood Cells % 0.3 %
[2024-08-31 11:47] LABS: Alanine Aminotransferase 18 U/L (7-40); Albumin 4.6 g/dL (3.2-4.8); Alkaline Phosphatase 105 U/L (46-116); Anion Gap 8 (5-15); BUN/Creatinine Ratio 12.6 (10.0-20.0); Bilirubin, Total 0.5 mg/dL (0.2-1.0); Blood Urea Nitrogen 13 mg/dL (9-23); Calcium 10.2 mg/dL (8.7-10.4); Carbon Dioxide 25 mmol/L (20-31); Chloride 105 mmol/L (98-107); Glucose 95 mg/dL (74-106); Potassium 3.8 mmol/L (3.5-5.1); Sodium 138 mmol/L (136-145); Total Protein 7.2 g/dL (5.7-8.2)
--- NOTE | 2024-08-31 11:58 | DVH ---
CHEST RADIOGRAPH Indication: cp, sob Technique: Single frontal view of the chest was obtained COMPARISON: XY CHEST PORTABLE on DOS: 04/17/24, XY CHEST PORTABLE on DOS: 10/07/23, XY CHEST PORTABLE on DOS: 08/18/23, XY CHEST PORTABLE on DOS: 05/15/22, CHEST PORTABLE on DOS: 10/28/18 FINDINGS: Lines and Tubes: None Lungs: Clear Pleura: No effusion. No pneumothorax. Cardiomediastinal contours: Unremarkable Bones: Thoracolumbar spinal fixation hardware. IMPRESSION: No acute disease.
[2024-08-31 13:10] LABS: Urine Protein, UAD Negative (Negative)
[2024-08-31] MEDS ORDERED: MORPHINE SULFATE 4 MG/ML SYR/VIAL IV PRN (13:45)
[2024-08-31] MEDS ORDERED: NITROGLYCERIN 0.4 MG SL TAB SL PRN ×2 (13:45)
[2024-08-31] MEDS ORDERED: ALPRAZolam 0.25 MG TAB PO PRN (13:45)
[2024-08-31] MEDS ORDERED: HYDR12.59 PO (13:51)
--- NOTE | 2024-08-31 13:53 | DVHHP2 ---
History of Present Illness Reason for Visit: Chest pain with shortness of breath along with headache and blurred vi History of Present Illness Génesis Love is a 59-year-old female with past medical history of hypertension, anxiety, and spinal surgery who presents to the ED with chest pain, headache, shortness of breath, and blurred vision x4 days. Patient reports that the chest pain is 9/10 tight and constant. She states that there are no triggering or alleviating factors. , Ulysses is at the bedside. They both state that she is under a lot of stress and has not been able to see her primary due to insurance issues for the last 3 months. Patient reports that she stopped taking her blood pressure medications 2 months ago because she stated she felt better. Patient has been also reports that she had a Holter monitor on in April and had dropped it off but with no results given, he stated that the facility lost the report. Patient denies any recent trauma or injury, recent sick contacts, recent travels, recent ingestion of spoiled food, abdominal pain, nausea, vomiting, diarrhea, fever, chills, lightheadedness, weakness, dizziness, or urinary symptoms. Cardiovascular: HTN Psych: Anxiety Past Surgical History: Other (Spinal surgery) Family History: Cancer, Other (Mom of mesothelioma. Dad of colorectal cancer.) Smoke: <1 pack per day ALCOHOL: none Drugs: None Lives: with Family Domestic Violence: Neg Review of Systems Constitutional: Yes: Other (Headache) Eyes: Vision change Respiratory: Shortness of breath Cardiovascular: Chest Pain Allergies: Coded Allergies: Tetracycline (Verified Allergy, Unknown, ADVERSE REACTION, 10/09/18) RASH Medications Current Medications Medications Dose Ordered Sig/Maryjane Route Start Time Stop Time Status Last Admin Dose Admin Alprazolam 0.25 mg Q12HP PRN PO 08/31/24 13:45 UNV Aspirin 81 mg DAILY PO 09/01/24 10:00 UNV Atorvastatin Calcium 40 mg HS PO 08/31/24 22:00 UNV Morphine Sulfate 2 mg Q30MP PRN IV 08/31/24 13:45 UNV Acetaminophen 650 mg Q6HP PRN PO 08/31/24 13:45 UNV Nitroglycerin 0.4 mg Q5MINP PRN SL 08/31/24 13:45 UNV Ondansetron HCl 4 mg Q4HP PRN IV 08/31/24 13:45 UNV Nitroglycerin 0.4 mg Q5MINP PRN SL 08/31/24 13:45 UNV Morphine Sulfate 2 mg Q30M PRN IV 08/31/24 13:45 UNV Exam Vital Signs Vital Signs Date Time Temp Pulse Resp B/P (MAP) Pulse Ox O2 Delivery O2 Flow Rate FiO2 08/31/24 11:10 79 14 98 Room Air* 0 21 08/31/24 11:03 98.1 140/95 (110) 98.1 General Appearance: Alert, Oriented X3, Cooperative, No acute distress HEENT: Atraumatic, PERRLA, EOMI, Mucous membr. moist/pink Respiratory: Clear to auscultation, Normal air movement Cardiovascular: Regular rate, Normal S1, Normal S2 Abdominal: Normal bowel sounds, Soft Extremities: No edema, Normal pulses Skin: No significant lesion Neuro: Normal speech, Strength at 5/5 X4 ext, Normal tone, Sensation intact Psych/Mental Status: Mental status NL, Other (Anxious and emotional) Labs/Xrays Labs Test 08/31/24 12:47 08/31/24 12:16 08/31/24 11:10 Range/Units Urine Color Colorless Yellow Urine Clarity Clear Clear Urine pH 6.5 5.0-9.0 Urine Specific [place] 1.009 1.001-1.035 Urine Protein Negative Negative Urine Ketones Negative Negative Urine Blood Negative Negative /uL Urine Nitrite 2+ H Negative Urine Bilirubin Negative Negative Urine Urobilinogen Normal Negative mg/dL Urine Leukocyte Esterase Negative Negative /uL Urine RBC 1 0 - 4 /hpf Urine Microscopic WBC 2 0-5 /HPF Urine Squamous Epithelial Cells Few <5 /hpf Urine Bacteria None seen None Seen /hpf Urine Glucose Normal Normal mg/dL Troponin I High Sensitivity 3 L </=34 ng/L White Blood Count 4.9 4.4-10.8 10^3/uL Red Blood Count 5.43 H 4.0-5.20 10^6/uL Hemoglobin 16.1 12.2-16.2 g/dL Hematocrit 47.6 H 36.0-46.0 % Mean Corpuscular Volume 87.8 80.0-100.0 fL Mean Corpuscular Hemoglobin 29.6 28.0-32.0 pg Mean Corpuscular Hemoglobin Concent 33.7 32.0-36.0 g/dL Red Cell Distribution Width 13.3 11.8-14.3 % Platelet Count 270 140-450 10^3/uL Mean Platelet Volume 7.6 6.9-10.8 fL Neutrophils (%) (Auto) 59.3 37.0-80.0 % Lymphocytes (%) (Auto) 31.1 10.0-50.0 % Monocytes (%) (Auto) 7.7 0.0-12.0 % Eosinophils (%) (Auto) 1.6 0.0-7.0 % Basophils (%) (Auto) 0.3 0.0-2.0 % Neutrophils # (Auto) 2.9 1.6-8.6 10 ^3/uL Lymphocytes # (Auto) 1.5 0.4-5.4 10 ^3/uL Monocytes # (Auto) 0.4 0-1.3 10 ^3/uL Eosinophils # (Auto) 0.1 0-0.8 10 ^3/uL Basophils # (Auto) 0 0-0.2 10 ^3/uL Nucleated Red Blood Cells 0.3 % Sodium Level 138 136-145 mmol/L Potassium Level 3.8 3.5-5.1 mmol/L Chloride Level 105 98-107 mmol/L Carbon Dioxide Level 25 20-31 mmol/L Anion Gap 8 5-15 Blood Urea Nitrogen 13 9-23 mg/dL Creatinine 1.03 H 0.550-1.02 mg/dL Glomerular Filtration Rate Calc 62 >90 mL/min BUN/Creatinine Ratio 12.6 10.0-20.0 Serum Glucose 95 74-106 mg/dL Calcium Level 10.2 8.7-10.4 mg/dL Total Bilirubin 0.5 0.2-1.0 mg/dL Aspartate Amino Transferase (AST) 22 13-40 U/L Alanine Aminotransferase (ALT) 18 7-40 U/L Alkaline Phosphatase 105 46-116 U/L B-Type Natriuretic Peptide 100.88 0-100 pg/mL Total Protein 7.2 5.7-8.2 g/dL Albumin 4.6 3.2-4.8 g/dL CHEST RADIOGRAPH Indication: cp, sob Technique: Single frontal view of the chest was obtained COMPARISON: XY CHEST PORTABLE on DOS: 04/17/24, XY CHEST PORTABLE on DOS: 10/07/23, XY CHEST PORTABLE on DOS: 08/18/23, XY CHEST PORTABLE on DOS: 05/15/22, CHEST PORTABLE on DOS: 10/28/18 FINDINGS: Lines and Tubes: None Lungs: Clear Pleura: No effusion. No pneumothorax. Cardiomediastinal contours: Unremarkable Bones: Thoracolumbar spinal fixation hardware. IMPRESSION: No acute disease. SEPSIS Sepsis Screen Date sepsis recognized/suspect: Aug 31, 2024 Time Sepsis recognized/suspect: 1045 Recent Procedure: No On Antibiotic Therapy: No Respiratory Rate >20: No Heart Rate >90: No Temp<36 C (96.8 F) or >38.3 C: No SBP <90 or MAP <65 mmHG: No New Acute Mental Status Change: No Is the patient on CPAP, BIPAP,: No Physician Orders Local Intermodal Truck Driver (08/31/24 ) Chest Portable (08/31/24 10:51) Electrocardigram (08/31/24 10:42) Troponin-I Hs (08/31/24 13:42) Electrocardigram (08/31/24 11:42) Electrocardigram (08/31/24 13:42) Alprazolam Tablet (Xanax Tablet) (08/31/24 13:45) Admit (08/31/24 13:36) Code Status (08/31/24 13:36) Vital Signs .PER UNIT PROTOCOL (08/31/24 13:36) Local Intermodal Truck Driver (08/31/24 13:36) Cardiac Diet-2gna,Lofat,Lochol (08/31/24 Dinner) Aspirin Tablet (09/01/24 10:00) Atorvastatin (Lipitor) (08/31/24 22:00) Morphine Sulfate Injection (08/31/24 13:45) Acetaminophen Tablet (Tylenol Tablet) (08/31/24 13:45) Complete Blood Count (09/01/24 04:00) Basic Metabolic Panel (09/01/24 04:00) Magnesium (09/01/24 04:00) Lipid Panel (09/01/24 04:00) Echo 2d Mode Cardiac Dop (08/31/24 13:36) Nitroglycerin Sublingual (Ntrostat Subli (08/31/24 13:45) Ondansetron Hcl (Zofran) (08/31/24 13:45) Electrocardigram (09/01/24 04:00) Troponin-I Hs (08/31/24 13:36) Cardiac Rehabilitation - Outpa (08/31/24 ) Nitroglycerin Sublingual (Ntrostat Subli (08/31/24 13:45) Morphine Sulfate Injection (08/31/24 13:45) Stat Ekg For Chest Pain (08/31/24 13:36) Notify Md Of Changes From Base (08/31/24 13:36) Petroleum Inspector Supervisor For 24 Hours (08/31/24 13:36) Emergency Dysrhythmia Protocol (08/31/24 13:36) Rhythm Strips Once Every Shift (08/31/24 13:36) Oxygen By Nasal Cannula (08/31/24 13:36) Thyroid Stimulating Hormone (08/31/24 13:40) Hemoglobin A1c (08/31/24 13:40) Drug Screen (08/31/24 13:40) Free T4 (Free Thyroxine) (08/31/24 13:40) * Environmental Attorney Consult (08/31/24 ) Vital Signs Date Time Temp Pulse Resp B/P (MAP) Pulse Ox O2 Delivery O2 Flow Rate FiO2 08/31/24 11:10 79 14 98 Room Air* 0 21 08/31/24 11:03 98.1 79 14 140/95 (110) 98 98.1 08/31/24 10:46 98.9 78 14 149/100 (116) 100 98.9 08/31/24 10:43 74 Laboratory Tests Test 08/31/24 11:10 White Blood Count 4.9 10^3/uL (4.4-10.8) Medications Medications Dose Ordered Sig/Maryjane Route Start Time Stop Time Status Last Admin Dose Admin Aspirin 325 mg ONCE ONCE PO 08/31/24 10:45 08/31/24 10:48 DC 08/31/24 11:56 325 MG Assessment/Plan Assessment/Plan Assessment Chest pain likely anxiety induced Medication noncompliance Tobacco use History of hypertension History of anxiety History of spinal surgery Plan Admit to tele Antiemetics Pain management CT head noted Chest x-ray noted Nitro given in ED Aspirin given in ED EKG UA BNP Antihypertensives Aspirin + statin Echo ordered UDS TSH Lipid panel A1c Free T4 Xanax Diet Home medications reconciled DVT prophylaxis -SCDs PUD prophylaxis-PPIs Discussed plan of care with patient, patient's spouse, and nurse business services manager-results from Holter monitoring Counseled patient on medication compliance [id number] Behavior change smoking greater than 10 minutes about use of other options also gave option of nicotine patch [id number] Preventive counseling healthy eating habits, physical activity, and regular checkups Plan discussed with: Patient, Spouse My Orders Orders - MARY BLANTON LITIGATION MANAGER Procedure Category Date Status Time Alprazolam Tablet PHA 08/31/24 Logged (Xanax Tablet) 13:45 Admit ADMIT 08/31/24 Transmitted 13:36 Code Status CODE 08/31/24 Transmitted 13:36 Vital Signs BEKA 08/31/24 In Process 13:36 Local Intermodal Truck Driver [facility] 08/31/24 In Process 13:36 Cardiac DIET 08/31/24 Transmitted Diet-2gna,Lofat,Lochol Dinner Aspirin Tablet PHA 09/01/24 Logged 10:00 Atorvastatin (Lipitor) PHA 08/31/24 Logged 22:00 Morphine Sulfate PHA 08/31/24 Logged Injection 13:45 Acetaminophen Tablet PHA 08/31/24 Logged (Tylenol Tablet) 13:45 Complete Blood Count LAB 09/01/24 Verified 04:00 Basic Metabolic Panel LAB 09/01/24 Verified 04:00 Magnesium LAB 09/01/24 Verified 04:00 Lipid Panel LAB 09/01/24 Verified 04:00 Echo 2d Mode Cardiac US 08/31/24 Logged DOP 13:36 Nitroglycerin PHA 08/31/24 Logged Sublingual (Ntrostat 13:45 Ondansetron Hcl PHA 08/31/24 Logged (Zofran) 13:45 Electrocardigram EKG 09/01/24 Logged 04:00 Troponin-I Hs LAB 08/31/24 Logged 13:36 Cardiac BEKA 08/31/24 In Process Rehabilitation - Outpa Nitroglycerin PHA 08/31/24 Logged Sublingual (Ntrostat 13:45 Morphine Sulfate PHA 08/31/24 Logged Injection 13:45 Stat Ekg For Chest BEKA 08/31/24 In Process Pain 13:36 Notify Of Changes [facility]KA 08/31/24 In Process From Base 13:36 Petroleum Inspector Supervisor For BEKA 08/31/24 In Process 24 Hours 13:36 Emergency Dysrhythmia BEKA 08/31/24 In Process Protocol 13:36 Rhythm Strips Once BEKA 08/31/24 In Process Every Shift 13:36 Oxygen By Nasal RT 08/31/24 Transmitted Cannula 13:36 Thyroid Stimulating LAB 08/31/24 Transmitted Hormone 13:40 Hemoglobin A1c LAB 08/31/24 Transmitted 13:40 Drug Screen LAB 08/31/24 Transmitted 13:40 Free T4 (Free LAB 08/31/24 Transmitted Thyroxine) 13:40 * Environmental Attorney CONS 08/31/24 Verified Consult Date of Service: Aug 31, 2024 Billing Provider: MARY BLANTON Common Visit Codes: [id number] INP/OBS CARE (HIGH) Secondary Visit Codes: [id number] COUNSELING IND, 90191-UEYSA CHNG SMOKING >10MIN MARY BLANTON Aug 31, 2024 13:53
[2024-08-31 14:21] LABS: Amphetamine Screen, Urine Pos (NEGATIVE); Opiate Scree,Urine Neg (NEGATIVE)
[2024-08-31] MEDS: ACETAMINOPHEN 325 MG TAB PO PRN (14:29)
[2024-08-31 14:36] LABS: Barbiturate Scree,Urine Neg (NEGATIVE); Benzodiazephine Screen, Urine Neg (NEGATIVE); Cannabinoid Screen, Urine Neg (NEGATIVE); Cocaine Screen, Urine Neg (NEGATIVE); Phencyclidine Screen, Urine Neg (NEGATIVE)
[2024-08-31] MEDS: ONDANSETRON HCL 4 MG/2 ML VIAL IV PRN (16:14)
[2024-08-31] MEDS: MORPHINE SULFATE INJ 2 MG/ml SYRG IV PRN (16:15)
--- NOTE | 2024-08-31 18:13 | ECG ---
[facility] Test Date: 2024-08-31 Test Time: 16:11:06 Pat Name: JACE HUANG Department: ED Room: 0279T Gender: F Virtualization Engineer: tao : 1965 Requested By: ROSS SANTOS Order Number: [id number] Reading MD: Valentin Smith Measurements Intervals [place] Rate: 72 P: 65 IN: 168 QRS: 236 QRSD: 120 T: 60 QT: 433 QTc: 474 Interpretive Statements Sinus rhythm Nonspecific intraventricular conduction delay Electronically Signed On 09-05-2024 15:47:19 PDT by Valentin Smith Please click the below link to view image of tracing.
[2024-08-31 19:35] VITALS: BP 138/91; O2SAT 97
[2024-08-31 20:00] VITALS: PULSE 75
[2024-08-31 21:00] VITALS: BP 131/96; PULSE 83; RESP 20; TEMP 98; O2SAT 96
[2024-08-31] MEDS ORDERED: CLON0.1T PO (22:11)
[2024-08-31] MEDS ORDERED: VERA120T92 PO (22:13)
[2024-08-31] MEDS: ATORVASTATIN 20 MG TAB PO SCH (22:22)
[2024-08-31] MEDS: VERAPAMIL HCL 40 MG TAB PO SCH (22:25)
[2024-09-01 05:00] VITALS: BP 127/87; PULSE 82; RESP 18; TEMP 97.7; O2SAT 98
[2024-09-01] MEDS: hydroCHLOROthiazide 25 MG TAB PO SCH (06:05)
[2024-09-01 07:26] LABS: Hematocrit 44.7 % (36.0-46.0); Hemoglobin 15.5 g/dL (12.2-16.2); Mean Corpuscular Hemoglobin 30.3 pg (28.0-32.0); Mean Corpuscular Volume 87.5 fL (80.0-100.0); Nucleated Red Blood Cells % 0.3 %
[2024-09-01 07:34] LABS: Anion Gap 7 (5-15); Calcium 9.6 mg/dL (8.7-10.4); Carbon Dioxide 26 mmol/L (20-31); Chloride 106 mmol/L (98-107); Potassium 4.1 mmol/L (3.5-5.1); Sodium 139 mmol/L (136-145)
[2024-09-01 07:39] LABS: Glucose 105 mg/dL (74-106)
[2024-09-01 07:40] LABS: BUN/Creatinine Ratio 19.2 (10.0-20.0); Triglycerides 71 mg/dL (< 150)
[2024-09-01 07:41] LABS: Cholesterol 166 mg/dL (< 200); Magnesium 2.2 mg/dL (1.6-2.6)
[2024-09-01 07:42] LABS: HDL Cholesterol 59 mg/dL (40-59)
[2024-09-01 07:43] LABS: Blood Urea Nitrogen 23 mg/dL (9-23)
[2024-09-01 08:00] VITALS: PULSE 73
[2024-09-01 09:00] VITALS: BP_SYST 122; BP_SYST 134; BP_DIAS 95; BP_DIAS 96; PULSE 81; PULSE 90; RESP 18; TEMP 98.1; O2SAT 96; O2SAT 97
[2024-09-01] MEDS: PANTOPRAZOLE 40 MG TAB PO SCH (09:54)
[2024-09-01] MEDS: LOSARTAN POTASSIUM 50 MG TAB PO SCH (09:55)
[2024-09-01 13:00] VITALS: BP 134/95; PULSE 90; RESP 18; TEMP 98.1; O2SAT 96
[2024-09-01 14:01] VITALS: BP 122/96; PULSE 69
--- NOTE | 2024-09-01 15:57 | DVHDS2 ---
Discharge Summary Date of Admission Aug 31, 2024 at 13:36 Date of Discharge: Sep 01, 2024 Labs/Diagnostic Data: Laboratory Results Test 09/01/24 06:55 08/31/24 12:47 08/31/24 12:16 08/31/24 11:10 White Blood Count 4.1 10^3/uL (4.4-10.8) Red Blood Count 5.11 10^6/uL (4.0-5.20) Hemoglobin 15.5 g/dL (12.2-16.2) Hematocrit 44.7 % (36.0-46.0) Mean Corpuscular Volume 87.5 fL (80.0-100.0) Mean Corpuscular Hemoglobin 30.3 pg (28.0-32.0) Mean Corpuscular Hemoglobin Concent 34.6 g/dL (32.0-36.0) Red Cell Distribution Width 13.5 % (11.8-14.3) Platelet Count 230 10^3/uL (140-450) Mean Platelet Volume 7.4 fL (6.9-10.8) Neutrophils (%) (Auto) 48.2 % (37.0-80.0) Lymphocytes (%) (Auto) 39.8 % (10.0-50.0) Monocytes (%) (Auto) 9.7 % (0.0-12.0) Eosinophils (%) (Auto) 1.9 % (0.0-7.0) Basophils (%) (Auto) 0.4 % (0.0-2.0) Neutrophils # (Auto) 2.0 10 ^3/uL (1.6-8.6) Lymphocytes # (Auto) 1.6 10 ^3/uL (0.4-5.4) Monocytes # (Auto) 0.4 10 ^3/uL (0-1.3) Eosinophils # (Auto) 0.1 10 ^3/uL (0-0.8) Basophils # (Auto) 0 10 ^3/uL (0-0.2) Nucleated Red Blood Cells 0.3 % Sodium Level 139 mmol/L (136-145) Potassium Level 4.1 mmol/L (3.5-5.1) Chloride Level 106 mmol/L (98-107) Carbon Dioxide Level 26 mmol/L (20-31) Anion Gap 7 (5-15) Blood Urea Nitrogen 23 mg/dL (9-23) Creatinine 1.20 mg/dL (0.550-1.02) Glomerular Filtration Rate Calc 52 mL/min (>90) BUN/Creatinine Ratio 19.2 (10.0-20.0) Serum Glucose 105 mg/dL (74-106) Calcium Level 9.6 mg/dL (8.7-10.4) Magnesium Level 2.2 mg/dL (1.6-2.6) Triglycerides Level 71 mg/dL (< 150) Cholesterol Level 166 mg/dL (< 200) LDL Cholesterol 93 mg/dL (< 100) HDL Cholesterol 59 mg/dL (40-59) Urine Color Colorless (Yellow) Urine Clarity Clear (Clear) Urine pH 6.5 (5.0-9.0) Urine Specific [place] 1.009 (1.001-1.035) Urine Protein Negative (Negative) Urine Ketones Negative (Negative) Urine Blood Negative /uL (Negative) Urine Nitrite 2+ (Negative) Urine Bilirubin Negative (Negative) Urine Urobilinogen Normal mg/dL (Negative) Urine Leukocyte Esterase Negative /uL (Negative) Urine RBC 1 /hpf (0 - 4) Urine Microscopic WBC 2 /HPF (0-5) Urine Squamous Epithelial Cells Few /hpf (<5) Urine Bacteria None seen /hpf (None Seen) Urine Glucose Normal mg/dL (Normal) Urine Opiates Screen Neg (NEGATIVE) Urine Fentanyl Screen Neg (NEGATIVE) Urine Barbiturates Screen Neg (NEGATIVE) Urine Phencyclidine Screen Neg (NEGATIVE) Urine Amphetamines Screen Pos (NEGATIVE) Urine Benzodiazepines Screen Neg (NEGATIVE) Urine Cocaine Screen Neg (NEGATIVE) Urine Cannabinoids Screen Neg (NEGATIVE) Troponin I High Sensitivity 3 ng/L (</=34) Hemoglobin A1c 5.9 % A1C (<5.7) Total Bilirubin 0.5 mg/dL (0.2-1.0) Aspartate Amino Transferase (AST) 22 U/L (13-40) Alanine Aminotransferase (ALT) 18 U/L (7-40) Alkaline Phosphatase 105 U/L (46-116) B-Type Natriuretic Peptide 100.88 pg/mL (0-100) Total Protein 7.2 g/dL (5.7-8.2) Albumin 4.6 g/dL (3.2-4.8) Thyroid Stimulating Hormone (TSH) 1.87 uIU/mL (0.55-4.78) Free Thyroxine (T4) Calculated 1.11 ng/dL (0.89-1.76) Other Laboratory Tests 09/01/24 06:55 Brief Hx & Hospital Course: Génesis Love is a 59-year-old female with past medical history of hypertension, anxiety, and spinal surgery who presents to the ED with chest pain, headache, shortness of breath, and blurred vision x4 days. Patient reports that the chest pain is 9/10 tight and constant. She states that there are no triggering or alleviating factors. , Ulysses is at the bedside. They both state that she is under a lot of stress and has not been able to see her primary due to insurance issues for the last 3 months. Patient reports that she stopped taking her blood pressure medications 2 months ago because she stated she felt better. All troponins negative chest pain resolved Condition at Discharge: Good Final Diagnosis/Problems List Uncontrolled HTN chest pain due to muscular pain Discharge Disposition: Home Discharge Instruct/Medications Diet: Regular Activity: No Restrictions, As Tolerated Follow Up/Referral: PCP in 7 days Medications: same home medications Scheduled Clonidine Hydrochloride (Clonidine Hcl), 0.1 MG PO TID, (Reported) Hydrochlorothiazide (Hydrochlorothiazide), 1 CAP PO QAM, (Reported) Olmesartan Medoxomil (Benicar), 1 TAB PO DAILY Pantoprazole Sodium Sesquihydr (Pantoprazole Sodium), 40 MG PO DAILY Verapamil HCl (Verapamil Hydrochloride), 20 MG PO BID Verapamil Hcl (Verapamil Hcl Er), 1 TAB PO DAILY, (Reported) Scheduled PRN Ondansetron Odt 4MG Tab (Zofran Po), 4 MG PO Q6HPRN PRN Discharge Statement: "Patient was advised to return to the ER or call 911 if any headaches, dizziness, shortness of breath, chest pain, abdominal pain, bleeding, fevers, or worsening of medical condition. Patient was counseled about treatment plan, medications, possible side effects, patientverbalized understanding. All questions were answered to the best of my ability. This discharge took greater then 30 minutes in planning, reviewing documentation, counseling the patient, and discussing with other team members." ASSESSMENT ASSESSMENT Assessment Date of Service: Sep 01, 2024 Billing Provider: COLTEN EWING MD Common Visit Codes: 41603-AST/OBS DISCH DAY >30min COLTEN EWING MD Sep 01, 2024 15:57
[2024-09-03 10:13] LABS: Hepatitis B Surface Antigen Negative (Negative)
[2024-09-03 10:34] LABS: Hepatitis C Antibody Negative (Negative)
== END 2024-09-01 15:45 | disposition home or self-care (01) | DRG 206 ==
LOC: ER 10:40 → EDBD 10:40 → OVERFLOW 13:36 → TELE-WESTW 18:54
DX: M94.0 Chondrocostal junction syndrome [Tietze] (principal); I10 Essential (primary) hypertension; F17.210 Nicotine dependence, cigarettes, uncomplicated; F15.10 Other stimulant abuse, uncomplicated; F41.9 Anxiety disorder, unspecified; H53.8 Other visual disturbances; Z80.0 Family history of malignant neoplasm of digestive organs; Z91.148 Patient's other noncompliance with medication regimen for other reason; Z88.1 Allergy status to other antibiotic agents; Z79.899 Other long term (current) drug therapy
CPT/HCPCS: 36415; 71045; 80048; 80053; 80061; 80307; 81001; 83036; 83735; 83880; 84439; 84443; 84484; 85025; 86803; 87340; 93005; 96374; G0378; J2405